=== PATIENT | female | born 1980 | race Caucasian/White ===

== ENCOUNTER 2020-05-19 13:52 | Outpatient (REF) | payer OTHER, SELFPAY | END 2020-05-19 13:53 | disposition home or self-care (01) | LOC: HO.LNP 13:52 | PROVIDERS: Visit Provider Otolaryngology | DX: J02.0 Streptococcal pharyngitis (principal) | CPT/HCPCS: 87071; 87880 ==

== ENCOUNTER 2020-06-10 17:34 | Outpatient (REF) | payer OTHER, SELFPAY | END 2020-06-10 17:35 | disposition home or self-care (01) | LOC: HO.LAB 17:34 | PROVIDERS: Visit Provider Internal Medicine | DX: Z20.822 Contact with and (suspected) exposure to COVID-19 (principal) | CPT/HCPCS: 36415; C9803; U0003 ==

== ENCOUNTER 2020-08-14 13:53 | Outpatient (REF) | payer OTHER, SELFPAY | END 2020-08-14 13:54 | disposition home or self-care (01) | LOC: HO.LAB 13:53 | PROVIDERS: Visit Provider Internal Medicine | DX: Z20.822 Contact with and (suspected) exposure to COVID-19 (principal) | CPT/HCPCS: 36415; C9803; U0003; U0005 ==

== ENCOUNTER 2020-08-28 21:43 | Emergency (ER) | payer OTHER, SELFPAY ==
[2020-08-28 22:12] VITALS: BP 120/72; PULSE 100; RESP 18; TEMP 37.7; O2SAT 97; BMI 22.3
--- NOTE | 2020-08-28 22:59 | ED_ITS ---
HPI - Fever General Chief Complaint: Fever Stated Complaint: Covid symptoms Time Seen by Provider: 08/28/20 22:58 Source: patient Mode of arrival: ambulatory Limitations: no limitations History of Present Illness HPI Narrative: 40-year-old female came in with 1 day history sore throat, subjective fever, upper back pain. Patient also been complaining of hives/rash which is itchy on her face patient declined any new detergent or using new soap or new makeup no change in her daily routine. No sick contacts, no recent travel. No sneezing, no coughing. Related Data Allergies Allergy/AdvReac Type Severity Reaction Status Date / Time No Known Allergies Allergy Verified 08/28/20 22:11 Review of Systems Review of Systems: All other systems are reviewed and are negative Constitutional: Reports as per HPI and Reports no additional constitutional complaints Eyes: Reports as per HPI and Reports no additional eye complaints Reports system reviewed and no additional complaints, except as documented Cardiovascular: Reports as per HPI and Reports no additional cardiovascular complaints Respiratory: Reports as per HPI and Reports no additional respiratory complaints Gastrointestinal: Reports as per HPI and Reports no additional gastrointestinal complaints Genitourinary: Reports no additional female genitourinary complaints Musculoskeletal: Reports no additional musculoskeletal complaints Skin/Breast: Reports system reviewed and no additional complaints, except as docu Psychiatric: Reports no additional psychiatric complaints Endocrine: Reports no additional endocrine complaints Hematologic/Lymphatic: Reports no additional hematologic/lymphatic complaints Allergic/Immunologic: Reports no additional allergic/immunologic complaints Reports system reviewed and no additional complaints, except as documented and Reports Abnormal speech present PMFSH Past Medical History Medical History COVID-19 Social History Social History Advance Directives: No Advance Directives Information Provided: No Physical Exam Vital Signs: Vital Signs: Last Vital Signs Temp 99.8 F 08/28/20 22:12 Pulse 100 08/28/20 22:12 Resp 18 08/28/20 22:12 BP 120/72 08/28/20 22:12 Pulse Ox 97 08/28/20 22:12 Body Mass Index 22.3 Vital signs have been reviewed as appeared to be correct. Blood pressure normal. Heart rate normal. Respiration rate normal. Temperature normal. Oxygen saturation normal. Appearance: Alert. Oriented X3. No acute distress. Head: Normal external exam. Normocephalic. Atraumatic. No Green signs noted. No raccoon eyes noted Eyes: PERRLA. EOMI. Conjunctiva and sclera normal. Eyelids normal. ENT: TM's Normal. Pharynx normal. Uvula midline. Moist mucous membranes. No trismus noted. No drooling noted. No muffled voice noted. Neck: Normal inspection. Neck supple. FROM. No adenopathy. Thyroid Normal. No meningeal signs. No neck mass noted. CVS: Normal heart rate and rhythm. Heart sound normal. No murmurs noted. Pulses normal throughout. Respiratory: No respiratory distress. Painless inspiration. Breath sounds normal. No wheezes/rales/rhonchi noted. Chest nontender. No accessory muscle usage noted or decreased air movement noted. Abdomen: Soft and nontender. Bowel sounds normal in all 4 quadrants. No distention noted. No organomegaly noted. No visible injury noted. Back: No CVA tenderness. Full range of motion noted. Skin: Skin warm and dry. Normal skin color. Normal skin turgor. No rashes/lesions/lacerations noted. Extremities: No lower extremity edema. Extremities exhibit normal range of motion. Extremities nontender. Neuro: Oriented X 3. No motor deficit. No sensory deficit. Reflexes normal. Course Course Course Narrative: Assessment and plan. 40-year-old female came in with sore throat rapid strep is negative for strep pharyngitis culture still pending. COVID testing is negative. Patient is also complaining of upper back pain UA is not indicated for pyelonephritis. Patient has also hives on the face patient declined reason for that. Will recommend Benadryl. MDM - Fever Lab Data Attestation: I reviewed the patient's lab results. Labs: Lab Results 08/28/20 08/29/20 08/29/20 Range/Units 23:59 00:05 00:05 Urine Color YELLOW Urine Appearance HAZY Urine pH 6.0 (5.0-8.0) Ur Specific [place] >= 1.030 H (1.005-1.025) Urine Protein TRACE (NEG-TRACE) MG/DL Urine Glucose (UA) NEG (NEG) MG/DL Urine Ketones NEG (NEG) MG/DL Urine Blood 3+ H (NEG) Urine Nitrite NEG (NEG) Ur Leukocyte Esterase NEG (NEG) Urine RBC 50-75 H (0) /HPF Urine WBC 1-4 (0-4) /HPF Ur Squamous Epith Cells 2+ /LPF Urine Bacteria NONE /LPF Urine Mucus 3+ /LPF Urine Test NEGATIVE (NEGATIVE) COVID-19 (LUCRECIA) Negative (Negative) COVID-19 Clin Com See Note Discharge Plan Discharge Clinical Impression: Pharyngitis Patient Disposition: Home, Self-Care Instructions: Pharyngitis (ED) Additional Instructions: Follow-up with PCP
[2020-08-29] VITALS: BP 112/70; PULSE 72; RESP 18; TEMP 37.7; O2SAT 98
[2020-08-29 00:12] LABS: Appearance Urine HAZY; Color Urine YELLOW; Glucose Urine UA NEG (NEG); Leukocyte Esterase Urine NEG (NEG); Nitrite Urine NEG (NEG); Specific Gravity - Urine >= 1.030 (1.005-1.025); Urine Blood 3+ (NEG); Urine Ketones NEG (NEG); Urine Protein TRACE MG/DL (NEG-TRACE)
[2020-08-29 00:13] LABS: UPreg QC Valid YES; Urine Pregnancy NEGATIVE (NEGATIVE)
[2020-08-29 00:19] LABS: COVID-19 Test Negative (Negative); IDNOW Serial# 9DD0AD1C
[2020-08-29 00:20] LABS: Mucus Urine 3+ /LPF; RBC Urine 50-75 /HPF (0); Squamous Epithelial Cell Urine 2+ /LPF
[2020-08-29] MEDS: diphenhydrAMINE HCL 25 MG TABLET 50 MG PO (00:43)
== END 2020-08-29 00:49 | disposition home or self-care (01) ==
PROVIDERS: Emergency Provider Emergency Medicine
DX: J02.9 Acute pharyngitis, unspecified (principal); Z20.822 Contact with and (suspected) exposure to COVID-19; R50.9 Fever, unspecified
CPT/HCPCS: 36415; 81001; 81025; 87071; 87635; 87880; 99283; 99284; Q0163

== ENCOUNTER 2020-08-31 06:55 | Emergency (ER) | payer OTHER, SELFPAY ==
[2020-08-31 07:23] VITALS: BP 118/82; PULSE 100; RESP 18; TEMP 36.3; O2SAT 95; BMI 21.6
[2020-08-31 08:00] VITALS: BP 116/87; PULSE 63; RESP 18; TEMP 36.8
--- NOTE | 2020-08-31 08:25 | ED.ABDPAIN ---
HPI - Abdominal Pain General Chief Complaint: Abdominal Pain Stated Complaint: Abd pain/?UTI Time Seen by Provider: 08/31/20 08:25 Source: patient Mode of arrival: ambulatory Limitations: language barrier History of Present Illness HPI narrative: NVD now with bloody diarhea, patient had fever yesterday. Patient was on antibiotics for a week for sore throat, amoxicillin. MD elicited complaint: abdominal pain Onset (ago): day(s) Pain Consistency: constant Severity: moderate Quality: cramping Radiation: LLQ and RLQ Migration to: no migration Relieving factors: nothing Context: other (recent antibiotics) Associated symptoms: nausea, vomiting, diarrhea and fever (tactile) Related Data Previous Rx's Medication Instructions Recorded ondansetron HCl [Zofran] 4 mg PO Q8H PRN #10 tab 08/31/20 Allergies Allergy/AdvReac Type Severity Reaction Status Date / Time No Known Allergies Allergy Verified 08/28/20 22:11 Review of Systems Constitutional: Reports no additional constitutional complaints Eyes: Reports no additional eye complaints Denies dizziness Cardiovascular: Reports no additional cardiovascular complaints Respiratory: Reports as per HPI Gastrointestinal: Reports no additional gastrointestinal complaints Genitourinary: Reports no additional female genitourinary complaints Musculoskeletal: Reports no additional musculoskeletal complaints Skin/Breast: Denies rash Reports system reviewed and no additional complaints, except as documented, Denies dizziness and Denies Sensory deficit (Neuro) Psychiatric: Denies anxiety Physical Exam Vital Signs: Vital Signs: Last Vital Signs Temp 98.3 F 08/31/20 08:00 Pulse 63 08/31/20 08:00 Resp 18 08/31/20 08:00 BP 116/87 08/31/20 08:00 Pulse Ox 95 08/31/20 07:23 Body Mass Index 21.6 Const: General: healthy appearing Nutritional Appearance: average body habitus Orientation/consciousness: oriented to person and patient oriented x3 Limitations: no limitations HENMT: Other: pharynx with erythema and exudates Head: Yes normal to inspection Ears: external ears normal General nose exam: Normal external nose present Throat: Yes posterior oropharynx normal Eyes: General: appearance normal, both eyes and all related structures Neck: Other: supple Neck: Yes normal visual inspection Chest: Chest palpation & inspection: normal inspection of the chest Resp: Auscultation: clear to auscultation bilaterally Cardio: Jugular venous distension: no JVD Rate: regular rate Rhythm: regular rhythm Heart sounds: S1 normal heart sound present and S2 normal heart sound present GI: Inspection: Yes normal to inspection Palpation (GI): Soft to palpation, nontender and No hepatosplenomegaly present Auscultation: normal bowel sounds : Other: rectal with bleeding hemorrhoid General: Yes no CVA tenderness Back/Spine/Pelvis: Back: no CVA tenderness Skin: General skin exam: no rashes or lesions noted Neuro: General: oriented to person and patient oriented x3 Cranial nerves: Yes CN's II-XII intact bilaterally Motor exam (neuro): 5/5 motor strength present throughout Sensory Exam: No Sensory deficit (Neuro) Extrem: General: Yes normal to inspection Psych: Appearance: grossly normal Course Course Course Narrative: discussed with Dr. Alvarado. Likely CMV, will check RPR in addition to GC/chlamydia and give decadron Reevaluation(s) Reevaluation #1: I have reviewed the chart MDM - Abdominal Pain MDM Narrative Medical decision making narrative: Diarrhea likely secondary to amoxicillin, patient negative for Mclennan, possible CMV, GC. Will not start clinda as patient already has diarrhea. Will give decadron Lab Data Result diagrams: 08/31/20 09:11 08/31/20 09:11 Labs: Lab Results 08/31/20 08/31/20 08/31/20 Range/Units 09:08 09:11 09:11 WBC 11.6 H (4.8-10.8) X10*3/uL RBC 4.20 (4.20-5.50) X10*6/uL Hgb 13.8 (12.0-16.0) g/dl Hct 40.3 (37-47) % MCV 96.0 (80-98) fL MCH 32.9 (27.0-33.0) pg MCHC 34.2 (31.0-35.0) g/dl RDW 12.3 (11.0-16.0) % Plt Count 205 (160-400) X10*3/uL MPV 9.3 L (9.4-12.3) fL Immature Gran % (Auto) 0.3 (0.0-0.4) % Neut % (Auto) 72.0 (45-73) % Lymph % (Auto) 13.3 L (20-40) % Mclennan % (Auto) 13.9 H (2-11) % Eos % (Auto) 0.2 (0-4) % Baso % (Auto) 0.3 (0-2) % Lymph # (Auto) 1.5 (1.2-4.9) X10*3/uL Mclennan # (Auto) 1.6 H (0.1-1.2) X10*3/uL Eos # (Auto) 0.0 (0.0-0.4) X10*3/uL Baso # (Auto) 0.0 (0.0-0.2) X10*3/uL Abs Immat Gran (auto) 0.03 (0.00-0.03) X10*3/uL Absolute Neuts (auto) 8.4 H (2.0-8.3) X10*3/uL Absolute Nucleated RBC 0.000 (0.0-0.012) X10*3/uL Nucleated RBC % (auto) 0.0 (0.0-0.2) /100WBC Smear Tech's Comments VERIFIED Sodium 135 (135-145) mmol/L Potassium 3.4 (3.3-5.1) mmol/L Chloride 100 (96-108) mmol/L Carbon Dioxide 24 (22-29) mmol/L Anion Gap 14 (12-20) BUN 9 (9-16) mg/dL Creatinine 0.63 (0.5-1.4) mg/dL Estim Creat Clear Calc 107.9 Estimated GFR > 60 Random Glucose 106 (60-115) mg/dL Calcium 8.5 (8.4-10.2) mg/dL Total Bilirubin 0.5 (0.0-1.0) mg/dL Direct Bilirubin 0.3 (0.0-0.5) mg/dL AST 68 H (5-31) U/L ALT 107 H (0-31) U/L Alkaline Phosphatase 112 (39-117) U/L Total Protein 7.4 (6.5-8.0) g/dL Albumin 4.1 (3.5-5.0) g/dL Lipase 8 (8-78) U/L Stool Leukocytes, Qual (NEGATIVE) T.pallidum Ab (EIA) (Nonreactive) Chlam trachomat DNA PCR NOT DETECTED (Not Detect.) C. difficile Toxin A&B (Negative) C. difficile Antigen (Negative) C. difficile Interpret Monoscreen (Negative) N.gonorrhoeae DNA (PCR) NOT DETECTED (Not Detect.) 08/31/20 08/31/20 08/31/20 Range/Units 09:11 09:11 10:57 WBC (4.8-10.8) X10*3/uL RBC (4.20-5.50) X10*6/uL Hgb (12.0-16.0) g/dl Hct (37-47) % MCV (80-98) fL MCH (27.0-33.0) pg MCHC (31.0-35.0) g/dl RDW (11.0-16.0) % Plt Count (160-400) X10*3/uL MPV (9.4-12.3) fL Immature Gran % (Auto) (0.0-0.4) % Neut % (Auto) (45-73) % Lymph % (Auto) (20-40) % Mclennan % (Auto) (2-11) % Eos % (Auto) (0-4) % Baso % (Auto) (0-2) % Lymph # (Auto) (1.2-4.9) X10*3/uL Mclennan # (Auto) (0.1-1.2) X10*3/uL Eos # (Auto) (0.0-0.4) X10*3/uL Baso # (Auto) (0.0-0.2) X10*3/uL Abs Immat Gran (auto) (0.00-0.03) X10*3/uL Absolute Neuts (auto) (2.0-8.3) X10*3/uL Absolute Nucleated RBC (0.0-0.012) X10*3/uL Nucleated RBC % (auto) (0.0-0.2) /100WBC Smear Tech's Comments Sodium (135-145) mmol/L Potassium (3.3-5.1) mmol/L Chloride (96-108) mmol/L Carbon Dioxide (22-29) mmol/L Anion Gap (12-20) BUN (9-16) mg/dL Creatinine (0.5-1.4) mg/dL Estim Creat Clear Calc Estimated GFR Random Glucose (60-115) mg/dL Calcium (8.4-10.2) mg/dL Total Bilirubin (0.0-1.0) mg/dL Direct Bilirubin (0.0-0.5) mg/dL AST (5-31) U/L ALT (0-31) U/L Alkaline Phosphatase (39-117) U/L Total Protein (6.5-8.0) g/dL Albumin (3.5-5.0) g/dL Lipase (8-78) U/L Stool Leukocytes, Qual MANY: >10/OIF (NEGATIVE) T.pallidum Ab (EIA) Nonreactive (Nonreactive) Chlam trachomat DNA PCR (Not Detect.) C. difficile Toxin A&B (Negative) C. difficile Antigen (Negative) C. difficile Interpret Monoscreen Negative (Negative) N.gonorrhoeae DNA (PCR) (Not Detect.) 08/31/20 Range/Units 10:57 WBC (4.8-10.8) X10*3/uL RBC (4.20-5.50) X10*6/uL Hgb (12.0-16.0) g/dl Hct (37-47) % MCV (80-98) fL MCH (27.0-33.0) pg MCHC (31.0-35.0) g/dl RDW (11.0-16.0) % Plt Count (160-400) X10*3/uL MPV (9.4-12.3) fL Immature Gran % (Auto) (0.0-0.4) % Neut % (Auto) (45-73) % Lymph % (Auto) (20-40) % Mclenn[place] % (Auto) (2-11) % Eos % (Auto) (0-4) % Baso % (Auto) (0-2) % Lymph # (Auto) (1.2-4.9) X10*3/uL Mclenn[place] # (Auto) (0.1-1.2) X10*3/uL Eos # (Auto) (0.0-0.4) X10*3/uL Baso # (Auto) (0.0-0.2) X10*3/uL Abs Immat Gran (auto) (0.00-0.03) X10*3/uL Absolute Neuts (auto) (2.0-8.3) X10*3/uL Absolute Nucleated RBC (0.0-0.012) X10*3/uL Nucleated RBC % (auto) (0.0-0.2) /100WBC Smear Tech's Comments Sodium (135-145) mmol/L Potassium (3.3-5.1) mmol/L Chloride (96-108) mmol/L Carbon Dioxide (22-29) mmol/L Anion Gap (12-20) BUN (9-16) mg/dL Creatinine (0.5-1.4) mg/dL Estim Creat Clear Calc Estimated GFR Random Glucose (60-115) mg/dL Calcium (8.4-10.2) mg/dL Total Bilirubin (0.0-1.0) mg/dL Direct Bilirubin (0.0-0.5) mg/dL AST (5-31) U/L ALT (0-31) U/L Alkaline Phosphatase (39-117) U/L Total Protein (6.5-8.0) g/dL Albumin (3.5-5.0) g/dL Lipase (8-78) U/L Stool Leukocytes, Qual (NEGATIVE) T.pallidum Ab (EIA) (Nonreactive) Chlam trachomat DNA PCR (Not Detect.) C. difficile Toxin A&B Negative (Negative) C. difficile Antigen Negative (Negative) C. difficile Interpret SEE NOTE Monoscreen (Negative) N.gonorrhoeae DNA (PCR) (Not Detect.) Discharge Plan Discharge Clinical Impression: Diarrhea, Exudative pharyngitis Patient Disposition: Home, Self-Care Instructions: Pharyngitis (ED), Acute Diarrhea (ED) Prescriptions: New ondansetron HCl [Zofran] 4 mg tablet 4 mg PO Q8H PRN (Reason: nausea and vomiting) Qty: 10 RF: 0 Referrals: [facility] [Primary Care Provider] - 2 days Interventions: ED Discharge Assessment Last Done: 08/31/20 11:21 Discharge Date/Time: 08/31/20 11:22 [facility] Past Medical History Medical History COVID-19 Depression Surgical History H/O tubal ligation Social History Social History Advance Directives: No
--- NOTE | 2020-08-31 08:41 | PC.NURSE ---
statistical assistant called
--- NOTE | 2020-08-31 08:57 | PC.NURSE ---
geoscience professor for rectal exam by dr pedroza
[2020-08-31 09:24] LABS: Basophils Percent Auto 0.3 % (0-2); Eosinophils Percent Auto 0.2 % (0-4); Hematocrit 40.3 % (37-47); Hemoglobin 13.8 g/dl (12.0-16.0); Imm Gran Abs Auto 0.03 X10*3/uL (0.00-0.03); Imm Gran Pct Auto 0.3 % (0.0-0.4); Lymphocytes Absolute Auto 1.5 X10*3/uL (1.2-4.9); Lymphocytes Percent Auto 13.3 % (20-40); MANUAL DIFF FLAG SCAN; Mean Corpuscular HGB Conc 34.2 g/dl (31.0-35.0); Mean Corpuscular Hemoglobin 32.9 pg (27.0-33.0); Mean Platelet Volume 9.3 fL (9.4-12.3); Monocytes Absolute Auto 1.6 X10*3/uL (0.1-1.2); Monocytes Percent Auto 13.9 % (2-11); Neutrophils Absolute Auto 8.4 X10*3/uL (2.0-8.3); Platelet Count 205 X10*3/uL (160-400); Red Cell Distribution Width 12.3 % (11.0-16.0); SCAN SMEAR FLAG 1; White Blood Count 11.6 X10*3/uL (4.8-10.8)
[2020-08-31 09:47] LABS: Alanine Aminotransferase 107 U/L (0-31); Albumin Level 4.1 g/dL (3.5-5.0); Alkaline Phosphatase 112 U/L (39-117); Anion Gap 14 (12-20); Aspartate Amino Transferase 68 U/L (5-31); Bilirubin Direct 0.3 mg/dL (0.0-0.5); Bilirubin Total 0.5 mg/dL (0.0-1.0); Blood Urea Nitrogen 9 mg/dL (9-16); Calcium 8.5 mg/dL (8.4-10.2); Carbon Dioxide 24 mmol/L (22-29); Chloride 100 mmol/L (96-108); Creatinine Clr Calc Pharmacy 107.9; Estimated Glomerular Filt Rate > 60; Glucose Random 106 mg/dL (60-115); Lipase 8 U/L (8-78); Potassium 3.4 mmol/L (3.3-5.1); SLIDE REVIEW VERIFIED; Sodium 135 mmol/L (135-145); Total Protein 7.4 g/dL (6.5-8.0)
[2020-08-31 09:51] LABS: Monotest Negative (Negative)
[2020-08-31 11:04] LABS: CT PCR NOT DETECTED (Not Detect.)
[2020-08-31 11:05] LABS: NG PCR NOT DETECTED (Not Detect.)
--- NOTE | 2020-08-31 11:20 | PC.NURSE ---
LAB CAN ADD ON SYPHILLIS TEST, GC AND STOOL PENDING. PT DC TO HOME WILL CALL WITH RESULTS, ALL OTHER FINDING NORMAL AT THIS TIME
[2020-08-31 11:44] LABS: Syphilis Screen Nonreactive (Nonreactive)
[2020-08-31 12:06] LABS: Leukocytes Stool Qualitative MANY: >10/OIF (NEGATIVE)
[2020-08-31 13:25] LABS: CDIFF Ag Negative (Negative); CDiff Toxin Negative (Negative)
[2020-08-31 13:26] LABS: CDIFF Internal ctrl Dots and bkg OK (V)
== END 2020-08-31 11:22 | disposition home or self-care (01) ==
PROVIDERS: Emergency Provider Emergency Medicine
DX: R19.7 Diarrhea, unspecified (principal); J02.9 Acute pharyngitis, unspecified; R10.9 Unspecified abdominal pain; Z86.16 Personal history of COVID-19
CPT/HCPCS: 36415; 80048; 80076; 83690; 85025; 86308; 86780; 87045; 87046; 87324; 87449; 87491; 87591; 89055; 96372; 99284; J1100

== ENCOUNTER 2020-09-24 15:21 | Outpatient (REF) | payer OTHER, SELFPAY | END 2020-09-24 15:22 | disposition home or self-care (01) | LOC: HO.LAB 15:21 | PROVIDERS: Visit Provider Internal Medicine | DX: Z20.822 Contact with and (suspected) exposure to COVID-19 (principal) | CPT/HCPCS: C9803; U0003; U0005 ==

== ENCOUNTER → 2021-01-05 11:08 | Outpatient (BNVA) | payer OTHER, SELFPAY | PROVIDERS: Visit Provider Internal Medicine | DX: J02.0 Streptococcal pharyngitis (principal); Z98.51 Tubal ligation status | CPT/HCPCS: 99202 ==

== ENCOUNTER 2021-06-21 14:26 | Outpatient (REF) | payer OTHER, SELFPAY ==
--- NOTE | ~2021-06-21 | XR_ITS ---
EXAMINATION: XR ABDOMEN KUB CLINICAL INDICATION: Microscopic hematuria. COMPARISON: Abdominal ultrasound of 04/03/2019. CT abdomen and pelvis of 11/17/2014 TECHNIQUE: AP view of the abdomen and pelvis. FINDINGS: The bowel gas pattern is normal with no evidence of ileus or obstruction. No unusual soft tissue calcifications are noted. The bones are unremarkable. The visualized lung bases are clear. XR/XR KUB IMPRESSION: No plain radiographic evidence of radiopaque urinary tract calculi.
== END 2021-06-21 14:27 | disposition home or self-care (01) ==
LOC: HO.XRAY 14:26
PROVIDERS: PCP Nurse Practitioner Primary Care; Visit Provider Nurse Practitioner Primary Care
DX: R31.29 Other microscopic hematuria (principal)
CPT/HCPCS: 74018

== ENCOUNTER 2021-07-01 12:00 | Outpatient (REF) | payer OTHER, SELFPAY ==
--- NOTE | ~2021-07-01 | US_ITS ---
EXAMINATION: US RETROPERITONEAL LIMITED (RENAL ONLY) CLINICAL INFORMATION: Microscopic hematuria. COMPARISON: XR KUB 06/21/2021. Ultrasound abdomen complete 04/03/2019. CT abdomen and pelvis with contrast 11/17/2014. TECHNIQUE: Real-time imaging of the kidneys. FINDINGS: RIGHT KIDNEY: 9.8 x 5.5 x 6.5 cm (SAG x AP x TRV). The kidney is normal in size, contour, and echogenicity. Renal cortical thickness is normal. No calculi or focal parenchymal lesions. No hydronephrosis. LEFT KIDNEY: 11.3 x 5.6 x 5.5 cm (SAG x AP x TRV). The kidney is normal in size, contour, and echogenicity. Renal cortical thickness is normal. No calculi or focal parenchymal lesions. No hydronephrosis. US/US renal BI IMPRESSION: Unremarkable sonographic imaging of the kidneys. Specifically, no renal calculi or hydronephrosis bilaterally.
== END 2021-07-01 12:01 | disposition home or self-care (01) ==
LOC: HO.HMGCX 12:00
PROVIDERS: PCP Nurse Practitioner Primary Care; Visit Provider Nurse Practitioner Primary Care
DX: R31.29 Other microscopic hematuria (principal); M54.9 Dorsalgia, unspecified
CPT/HCPCS: 76775

== ENCOUNTER 2021-11-18 19:49 | Emergency (ER) | payer OTHER, SELFPAY ==
[2021-11-18 19:55] VITALS: BP 112/91; PULSE 115; RESP 17; TEMP 37.3; O2SAT 97; BMI 26.6
[2021-11-18] MEDS: Ibuprofen 600 MG TABLET PO (20:03)
[2021-11-18 20:28] LABS: COVID-19 Test Negative (Negative); IDNOW Serial# 16C4AD1C; Influenza A Negative (Negative); Influenza B2 Negative (Negative)
[2021-11-18 20:30] LABS: Strep A Nucleic Acid Negative (Negative)
[2021-11-18] MEDS: methylPREDNISolone Sod Succ 125 MG/2 ML VIAL IVPUSH (21:02)
[2021-11-18] MEDS: 0.9 % Sodium Chloride 1,000 ML 999 ML IV (21:02)
--- NOTE | 2021-11-18 21:04 | ED.GENADULT ---
HPI - General Adult General Chief complaint: General Medical Stated complaint: strep throat, dizzy Time Seen by Provider: 11/18/21 20:36 Source: patient and per diem interpreter Mode of arrival: ambulatory Limitations: no limitations History of Present Illness HPI narrative: 41-year-old female came in with sore throat and feeling dizzy. Right-sided sore throat for many weeks, patient was seen in the emergency department for similar symptoms in the past was treated with amoxicillin patient had negative strep throat with negative culture of the throat for group a beta-hemolytic streptococci, patient developed diarrhea from amoxicillin. Patient is sexually active with 1 partner patient is concerned of having STD exposure, patient has no symptoms. Related Data Previous Rx's Medication Instructions Recorded ondansetron HCl 4 mg tablet 4 mg PO Q8H PRN nausea and 08/31/20 (Zofran) vomiting #10 tabs amoxicillin 500 mg capsule 500 mg PO TID 10 days #30 caps 01/05/21 penicillin V potassium 250 mg 250 mg PO BID 30 days #60 tabs 01/05/21 tablet Allergies Allergy/AdvReac Type Severity Reaction Status Date / Time No Known Allergies Allergy Verified 08/28/20 22:11 Review of Systems Review of Systems: All other systems are reviewed and are negative Constitutional: Reports as per HPI and Reports no additional constitutional complaints Eyes: Reports as per HPI and Reports no additional eye complaints Reports system reviewed and no additional complaints, except as documented Cardiovascular: Reports as per HPI and Reports no additional cardiovascular complaints Respiratory: Reports as per HPI and Reports no additional respiratory complaints Gastrointestinal: Reports as per HPI and Reports no additional gastrointestinal complaints Genitourinary: Reports no additional female genitourinary complaints Musculoskeletal: Reports no additional musculoskeletal complaints Skin/Breast: Reports system reviewed and no additional complaints, except as docu Psychiatric: Reports no additional psychiatric complaints Endocrine: Reports no additional endocrine complaints Hematologic/Lymphatic: Reports no additional hematologic/lymphatic complaints Allergic/Immunologic: Reports no additional allergic/immunologic complaints Reports system reviewed and no additional complaints, except as documented and Reports Abnormal speech present [facility] Past Medical History Medical History COVID-19 Depression Surgical History H/O tubal ligation Social History Social History Advance Directives: No Advance Directives Information Provided: No Physical Exam ED Vital Signs: Vital Signs - 24 hr 11/18/21 19:55 Temperature 99.2 F Pulse Rate 115 H Respiratory Rate 17 Blood Pressure 112/91 H Pulse Oximetry 97 Oxygen Delivery Method Room Air BMI result Body Mass Index 26.6 Vital signs have been reviewed as appeared to be correct. Blood pressure normal. Heart rate elevated. Respiration rate normal. Temperature normal. Oxygen saturation normal. Appearance: Alert. Oriented X3. No acute distress. Head: Normal external exam. Normocephalic. Atraumatic. No Green signs noted. No raccoon eyes noted Eyes: PERRLA. EOMI. Conjunctiva and sclera normal. Eyelids normal. ENT: TM's Normal. Right pharyngeal erythema with white exudate, no tonsillar enlargement. Uvula midline. Moist mucous membranes. No trismus noted. No drooling noted. No muffled voice noted. Neck: Normal inspection. Neck supple. FROM. No adenopathy. Thyroid Normal. No meningeal signs. No neck mass noted. CVS: Normal heart rate and rhythm. Heart sound normal. No murmurs noted. Pulses normal throughout. Respiratory: No respiratory distress. Painless inspiration. Breath sounds normal. No wheezes/rales/rhonchi noted. Chest nontender. No accessory muscle usage noted or decreased air movement noted. Abdomen: Soft and nontender. Bowel sounds normal in all 4 quadrants. No distention noted. No organomegaly noted. No visible injury noted. Back: No CVA tenderness. Full range of motion noted. Skin: Skin warm and dry. Normal skin color. Normal skin turgor. No rashes/lesions/lacerations noted. Extremities: No lower extremity edema. Extremities exhibit normal range of motion. Extremities nontender. Neuro: Oriented X 3. Cranial nerve exam: II-XII are grossly intact No motor deficit. No sensory deficit. Reflexes normal. Course Course Course Narrative: Assessment and plan. 41 years old female came in with sore throat, patient is negative for strep pharyngitis, also negative for mononucleosis pharyngitis, negative COVID/flu. Patient is prone to antibiotic induced diarrhea However patient received IV hydration with IV Solu-Medrol patient felt better. Will discharge the patient to follow-up with ENT doctor for further evaluation. Medical Decision Making Lab Data Lab results reviewed: Yes I reviewed the patient's lab results. Labs: Lab Results 11/18/21 11/18/21 11/18/21 Range/Units 19:59 19:59 20:13 COVID-19 (LUCRECIA) Negative (Negative) COVID-19 Clin Com See Note Monoscreen (Negative) Influenza Type A (SKYLER) Negative (Negative) Influenza Type B (SKYLER) Negative (Negative) Influenza A & B Note See Note S. pyogenes GrpA SKYLER Negative (Negative) 11/18/21 Range/Units 21:26 COVID-19 (LUCRECIA) (Negative) COVID-19 Clin Com Monoscreen Negative (Negative) Influenza Type A (SKYLER) (Negative) Influenza Type B (SKYLER) (Negative) Influenza A & B Note S. pyogenes GrpA SKYLER (Negative) Discharge Plan Discharge Clinical Impression: Pharyngitis Patient Disposition: Home, Self-Care Instructions: Pharyngitis (ED) Prescriptions: No Action ondansetron HCl [Zofran] 4 mg tablet 4 mg PO Q8H PRN (Reason: nausea and vomiting) Qty: 10 0RF amoxicillin 500 mg capsule 500 mg PO TID 10 Days Qty: 30 0RF Rx Instructions: start Penicillin day after finish penicillin V potassium 250 mg tablet 250 mg PO BID 30 Days Qty: 60 5RF Rx Instructions: start day after finish Amoxicillin Referrals: Luke Marina [Physician] - Allyn Salguero [employer] [Primary Care Provider] -
[2021-11-18 21:55] LABS: Monotest Negative (Negative)
[2021-11-19 09:36] LABS: CT PCR NOT DETECTED (Not Detect.); NG PCR NOT DETECTED (Not Detect.)
== END 2021-11-18 23:12 | disposition home or self-care (01) ==
PROVIDERS: Emergency Provider Emergency Medicine; PCP Nurse Practitioner Primary Care
DX: J02.9 Acute pharyngitis, unspecified (principal); Z20.2 Contact with and (suspected) exposure to infections with a predominantly sexual mode of transmission; Z20.822 Contact with and (suspected) exposure to COVID-19
CPT/HCPCS: 36415; 86308; 87491; 87502; 87591; 87635; 87651; 96361; 96374; 99283; 99284; J2930

== ENCOUNTER 2022-08-05 10:22 | Outpatient (REF) | payer OTHER, SELFPAY ==
--- NOTE | ~2022-08-05 | US_ITS ---
EXAMINATION: US ABDOMEN LIMITED CLINICAL INFORMATION: Right upper quadrant pain. COMPARISON: Renal ultrasound 07/01/2021. X-ray KUB 06/21/2021. Ultrasound abdomen complete 04/03/2019. CT abdomen and pelvis 11/17/2014. TECHNIQUE: Real-time imaging of the right upper quadrant abdominal viscera. FINDINGS: PANCREAS: Limited. The visualized pancreatic head and body are normal in appearance. The remainder of the pancreas is obscured from visualization by the overlying bowel gas. LIVER: The liver is normal in size. The liver contour is normal. There is slightly increased liver parenchymal echogenicity. No focal hepatic lesion. There is no intrahepatic biliary duct dilatation seen. GALLBLADDER: Normal. The gallbladder is physiologically distended without evidence of stones, sludge, polyps, wall thickening or pericholecystic fluid. COMMON BILE DUCT: Normal in caliber measuring 0.2 cm in diameter. RIGHT KIDNEY: Normal. No hydronephrosis. No renal calculi or focal parenchymal lesions. The kidney measures 10.3 cm in maximum dimension. FREE FLUID: None. US/US abdomen limited IMPRESSION: 1. There is slight generalized increase in hepatic echotexture, consistent with fatty infiltration or hepatocellular disease. Please correlate clinically. No focal hepatic mass or intrahepatic biliary dilatation is seen. 2. Otherwise, unremarkable examination, with imaging of the pancreas technically limited.
== END 2022-08-05 10:23 | disposition home or self-care (01) ==
LOC: HO.US 10:22
PROVIDERS: PCP Nurse Practitioner Primary Care; Visit Provider Nurse Practitioner Primary Care
DX: R10.11 Right upper quadrant pain (principal)
CPT/HCPCS: 76705

== ENCOUNTER 2023-09-29 12:36 | Outpatient (REF) | payer OTHER, SELFPAY ==
--- NOTE | ~2023-09-29 | XR_ITS ---
EXAMINATION: XR MANDIBLE CLINICAL INFORMATION: Cheek pain COMPARISON: None available. TECHNIQUE: 4 views of the mandible were obtained. FINDINGS: No displaced fracture or dislocation. Dental hardware. Soft tissues are unremarkable. XR/XR mandible min 4V IMPRESSION: 1. No displaced fracture or dislocation. 2. Dental hardware.
== END 2023-09-29 12:37 | disposition home or self-care (01) ==
LOC: HO.XRAY 12:36
PROVIDERS: PCP Nurse Practitioner Primary Care; Visit Provider Student in an Organized Health Care Education/Training Program
DX: R22.0 Localized swelling, mass and lump, head (principal)
CPT/HCPCS: 70110

== ENCOUNTER 2023-10-10 13:07 | Outpatient (REF) | payer OTHER, SELFPAY ==
--- NOTE | ~2023-10-10 | US_ITS ---
EXAMINATION: US SOFT TISSUE HEAD/NECK CLINICAL INFORMATION: Growing soft tissue mass left mid mandibular area. COMPARISON: X-ray mandible 09/29/2023. TECHNIQUE: Linear transducer collins-scale and color Doppler examination of the left mandible. FINDINGS: Targeted ultrasound images were obtained by the library helper of the area of concern as indicated by the patient in the mid left mandible. There is a 0.8 x 0.6 x 0.6 cm hypoechoic, [id number] mass with well-circumscribed margins and internal vascularity. Incidental note of a adjacent lymph nodes measuring 1.1 x 0.4 x 0.5 cm, 1.1 x 0.7 x 0.7 cm, and largest 2.6 x 0.7 x 1.9 cm. These lymph nodes demonstrate echogenic marco antonio, reniform shape, and borderline cortical thickening. Radiologist was not in attendance. Images were later provided for interpretation. US/US soft tiss head and/or neck IMPRESSION: A 0.8 cm hypoechoic vascular mass in the area indicated by the patient in the left mid mandible. Incidental note of at least 3 adjacent lymph nodes with borderline cortical thickening, largest measures 2.6 x 0.7 x 1.9 cm. Correlation with clinical exam recommended to determine further assessment including possible additional imaging with MRI, treatment or biopsy.
== END 2023-10-10 13:08 | disposition home or self-care (01) ==
LOC: HO.US 13:07
PROVIDERS: PCP Nurse Practitioner Primary Care; Visit Provider Student in an Organized Health Care Education/Training Program
DX: R22.0 Localized swelling, mass and lump, head (principal)
CPT/HCPCS: 76536

== ENCOUNTER 2023-10-11 14:20 | Outpatient (REF) | payer OTHER, SELFPAY ==
[2023-10-11 16:12] LABS: MANUAL DIFF FLAG NO
[2023-10-11 16:20] LABS: Basophils Percent Auto 0.4 % (0-2); Eosinophils Absolute Auto 0.1 X10*3/uL (0.0-0.4); Eosinophils Percent Auto 1.1 % (0-4); Hematocrit 38.4 % (37.0-47.0); Hemoglobin 12.9 g/dl (12.0-16.0); Imm Gran Abs Auto 0.02 X10*3/uL (0.00-0.03); Imm Gran Pct Auto 0.3 % (0.0-0.4); Lymphocytes Absolute Auto 2.2 X10*3/uL (1.2-4.9); Lymphocytes Percent Auto 29.5 % (20-40); Mean Corpuscular HGB Conc 33.6 g/dl (31.0-35.0); Mean Corpuscular Hemoglobin 32.5 pg (27.0-33.0); Mean Corpuscular Volume 96.7 fL (80.0-98.0); Monocytes Absolute Auto 0.6 X10*3/uL (0.1-1.2); Monocytes Percent Auto 8.7 % (2-11); Neutrophils Absolute Auto 4.4 x10*3/uL (2.0-8.3); Platelet Count 311 X10*3/uL (160-400); Red Blood Count 3.97 X10*6/uL (4.20-5.50); Red Cell Distribution Width 12.1 % (11.0-16.0); White Blood Count 7.3 X10*3/uL (4.8-10.8)
[2023-10-11 16:36] LABS: Anion Gap 15 (12-20); Blood Urea Nitrogen 9 mg/dL (9-16); Calcium 9.5 mg/dL (8.4-10.2); Carbon Dioxide 23 mmol/L (22-29); Chloride 106 mmol/L (96-108); Cholesterol 198 mg/dL (<200); Estimated Glomerular Filt Rate > 60; Glucose Random 84 mg/dL (60-115); HDL Cholesterol 39 mg/dL (>40); LDL Cholesterol Calculated 142 mg/dL (<100); Potassium 4.1 mmol/L (3.3-5.1); Sodium 140 mmol/L (135-145); Triglycerides 86 mg/dL (<150)
[2023-10-11 17:00] LABS: Folate 10.1 ng/mL (> or = 4.0); Vitamin B12 378 pg/mL (200-900)
[2023-10-12 08:00] LABS: HIV AB/AG Nonreactive (Nonreactive); HIV Num 1 0.04 S/CO (0.00-0.99); ~HepC Num1 0.13 S/CO (0.00-0.79); ~Hepatitis C Antibody Nonreactive (Nonreactive)
[2023-10-14 07:24] LABS: TS Negative Control Passed; TS Panel A 0; TS Panel B 0; TS Positive Control Passed; TSpotTB Negative (Negative)
[2023-10-15 14:48] LABS: RPR Rapid Plasma Reagin NON-REACTIVE (NON-REACTIVE)
== END 2023-10-11 14:21 | disposition home or self-care (01) ==
LOC: HO.HHCL 14:20
PROVIDERS: Visit Provider Nurse Practitioner Primary Care
DX: R61 Generalized hyperhidrosis (principal); Z11.3 Encounter for screening for infections with a predominantly sexual mode of transmission; F32.A Depression, unspecified; Z13.220 Encounter for screening for lipoid disorders
CPT/HCPCS: 36415; 80048; 80061; 82607; 82746; 84443; 85025; 86481; 86592; 86803; 87389

== ENCOUNTER → 2023-10-25 14:30 | Outpatient (BNV) | payer OTHER, SELFPAY | PROVIDERS: PCP Student in an Organized Health Care Education/Training Program; Visit Provider Radiology Diagnostic Radiology | DX: Z12.31 Encounter for screening mammogram for malignant neoplasm of breast (principal) | CPT/HCPCS: 77063; 77067 ==

== ENCOUNTER 2023-10-25 14:39 | Outpatient (REF) | payer OTHER, SELFPAY ==
--- NOTE | ~2023-10-25 | MM_ITS ---
EXAMINATION: MM SCREENING DIGITAL BREAST TOMOSYNTHESIS, BILATERAL CLINICAL INFORMATION: Screening. Asymptomatic. COMPARISON: Mammography: This is a baseline mammogram. TECHNIQUE: Digital breast tomosynthesis is performed in both the craniocaudal and mediolateral oblique views along with computer-aided detection (CAD). Synthesized 2D images are generated from the tomosynthesis. FINDINGS: There are scattered areas of fibroglandular density (ACR BI-RADS breast composition Category b). There are no significant masses, abnormal calcifications, or other abnormalities. MM/MM tomosynthesis screening BI IMPRESSION: No mammographic evidence of malignancy. ASSESSMENT: BI-RADS BI-RADS 1 - Negative RECOMMENDATION: Routine annual mammography screening. 1 year F/U This examination should not preclude the clinical evaluation of a suspicious palpable abnormality. This patient's information was entered into a reminder system with a target due date for their next mammogram.
== END 2023-10-25 14:40 | disposition home or self-care (01) ==
LOC: HO.MAMMO 14:39
PROVIDERS: PCP Student in an Organized Health Care Education/Training Program; Visit Provider Nurse Practitioner Primary Care
DX: Z12.31 Encounter for screening mammogram for malignant neoplasm of breast (principal)
CPT/HCPCS: 77063; 77067

== ENCOUNTER 2023-10-26 16:44 | Outpatient (REF) | payer OTHER, SELFPAY ==
[2023-11-02 07:59] LABS: HPV mRNA E6/E7 rflx Not Detected (Not Detected)
== END 2023-10-26 16:45 | disposition home or self-care (01) ==
LOC: HO.LNP 16:44
PROVIDERS: Visit Provider Advanced Practice Midwife
DX: Z12.4 Encounter for screening for malignant neoplasm of cervix (principal)
CPT/HCPCS: 87624; 88142

== ENCOUNTER 2024-01-09 15:52 | Outpatient (REF) | payer OTHER, SELFPAY ==
--- NOTE | ~2024-01-09 | MR_ITS ---
EXAMINATION: MRI FACE/NECK WITHOUT AND WITH CONTRAST CLINICAL INFORMATION: 43-year-old with self-reported left-sided mass, mandible. COMPARISON: None available. TECHNIQUE: MRI of the soft tissue neck and extracranial head and neck structures was obtained using routine sequences without and with contrast. Intravenous contrast: Gadavist 6.5 mL. Technical note: Markers were placed at the region of interest, overlying the left cheek and left submandibular space. Note that the study was limited as postcontrast fat saturation was not performed. FINDINGS: At the site of the markers, there is normal-appearing subcutaneous adipose tissue with no evidence for mass lesion, fluid collection, edema or abnormal enhancement. The mandible demonstrates normal morphology. There is susceptibility artifact within the left body of the mandible. The lingual and buccal spaces appear grossly unremarkable. The visualized intracranial structures demonstrate no acute process. The visualized orbital structures appear grossly unremarkable within the limitations of the study. The visceral spaces appear smoothly contoured and the feather stitcher and parapharyngeal spaces are within normal limits. The parotid glands are normal in morphology and signal intensity. The submandibular glands are markedly atrophic or absent bilaterally. There are prominent level IIA lymph nodes at the IJ chains bilaterally, measuring 1.6 x 0.9 cm on the left and 1.1 x 0.8 cm on the right. The oral cavity structures are within normal limits with a normal appearance to the base of the tongue and floor of the mouth structures. No other lymphadenopathy identified. The suprahyoid epiglottis, hypopharynx and larynx appear grossly within normal limits. The thyroid gland is incompletely visualized. No obvious thyromegaly. Normal signal voids are seen within the visualized major neck and intracranial vessels. Discogenic degenerative changes and spondylosis are seen between C4-C5 and C6-C7 inclusive with broad-based posterior disc protrusions at these levels. MR/MR orbits face neck wo/w con IMPRESSION: 1. No evidence for mass lesion, fluid collection or edema at the site of the markers on the left. 2. Moderately prominent bilateral level IIA IJ chain lymph nodes, left more than right, which are nonspecific and may be reactive in nature. Consider follow-up soft tissue neck ultrasound in 6 months to reassess if warranted. 3. Multilevel cervical degenerative changes, as described above. 4. Limited visualization of the thyroid gland. Susceptibility artifact noted in the left body of the mandible. 5. Some limitations related to lack of postcontrast fat sat T1-weighted imaging. Electronically signed by: Will Contreras MD 02/01/2024 02:54 PM EDT RP
[2024-01-09] MEDS: gadobutroL 7.5 ML VIAL IVPUSH (11:56)
== END 2024-01-09 15:53 | disposition home or self-care (01) ==
LOC: HO.MRI 15:52
PROVIDERS: PCP Student in an Organized Health Care Education/Training Program; Visit Provider Student in an Organized Health Care Education/Training Program
DX: R22.0 Localized swelling, mass and lump, head (principal); M79.89 Other specified soft tissue disorders
CPT/HCPCS: 70543; A9585

== ENCOUNTER 2024-03-14 14:29 | Outpatient (REF) | payer OTHER, SELFPAY ==
[2024-03-14 16:25] LABS: MANUAL DIFF FLAG NO
[2024-03-14 16:30] LABS: Basophils Percent Auto 0.7 % (0-2); Eosinophils Absolute Auto 0.1 X10*3/uL (0.0-0.4); Hematocrit 38.5 % (37.0-47.0); Hemoglobin 12.7 g/dl (12.0-16.0); Imm Gran Abs Auto 0.01 X10*3/uL (0.00-0.03); Imm Gran Pct Auto 0.2 % (0.0-0.4); Lymphocytes Absolute Auto 1.9 X10*3/uL (1.2-4.9); Mean Corpuscular Hemoglobin 32.5 pg (27.0-33.0); Mean Corpuscular Volume 98.5 fL (80.0-98.0); Mean Platelet Volume 9.7 fL (9.4-12.3); Monocytes Absolute Auto 0.6 X10*3/uL (0.1-1.2); Monocytes Percent Auto 9.6 % (2-11); Neutrophils Absolute Auto 3.3 x10*3/uL (2.0-8.3); Neutrophils Percent Auto 56.5 % (45-73); Platelet Count 369 X10*3/uL (160-400); Red Blood Count 3.91 X10*6/uL (4.20-5.50); Red Cell Distribution Width 11.9 % (11.0-16.0); White Blood Count 5.8 X10*3/uL (4.8-10.8)
[2024-03-14 16:46] LABS: Rheumatoid Factor < 13.0 IU/mL (<15.0)
[2024-03-14 17:17] LABS: Erythrocyte Sedimentation Rate 16 MM/HR (0-20)
[2024-03-14 17:34] LABS: Creatinine Urine 156.39 mg/dL; Microalbum/Creatinine Ratio Ur 8.3 ug/mg cr (<30)
[2024-03-15 20:59] LABS: Antibody to SS-A Antigen <1.0 NEG AI (<1.0 NEG); Antibody to SS-B Antigen <1.0 NEG AI (<1.0 NEG)
[2024-03-17 13:33] LABS: Anti Nuclear Antibody Screen NEGATIVE (NEGATIVE)
== END 2024-03-14 14:30 | disposition home or self-care (01) ==
LOC: HO.HHCL 14:29
PROVIDERS: Visit Provider Nurse Practitioner Primary Care
DX: K11.0 Atrophy of salivary gland (principal)
CPT/HCPCS: 36415; 82043; 82570; 85025; 85652; 86038; 86235; 86431

== ENCOUNTER → 2024-03-19 11:08 | Outpatient (REF) | payer OTHER, SELFPAY ==
--- NOTE | 2024-03-19 | HM_ITS ---
Conclusion: 1. Patient was monitored for total period of 2 days 2. Baseline was normal sinus rhythm with average heart of 76 beats per minute 3. No significant arrhythmias or pauses noted 4. Patient marked the counter 3 times with symptoms reported as tachycardia correlating with sinus rhythm or sinus bradycardia MTDD
== END ==
LOC: HO.CARD 11:08
PROVIDERS: PCP Nurse Practitioner Primary Care; Visit Provider Nurse Practitioner Primary Care
DX: R00.2 Palpitations (principal)
CPT/HCPCS: 93225

== ENCOUNTER → 2024-03-19 11:58 | Outpatient (BNV) | payer OTHER, SELFPAY | PROVIDERS: PCP Nurse Practitioner Primary Care; Visit Provider Internal Medicine Cardiovascular Disease | DX: R00.1 Bradycardia, unspecified (principal) | CPT/HCPCS: 93227 ==

== ENCOUNTER 2024-06-28 10:03 | Outpatient (REF) | payer OTHER, SELFPAY ==
--- OUTSIDE RECORDS SUMMARY | 2024-06-28 10:45 | XMS_ITS | Clinical Summary ---
Author Organization [employer] Address [address] [facility] [address] [place] [address] Care Team Providers Care Rpg Programmer Analyst Name Role Phone Aashish Cantor Primary Care Provider [phone] Allergies No known active allergies Medications * This document contains information received from the source organization and may not represent a complete record from that organization. ibuprofen 800 MG tabletIndicati ons:Low back pain at multiple sites TAKE 1 TABLET BY MOUTH UP TO THREE TIMES DAILY WITH FOOD NEEDED FOR PAIN 60 tablet 1 01/11/20 23 Active estradiol (Estrace) 0.1 MG/GM vaginal cream Insert 1 g into the vagina Once per day. 1g vaginally x 14d, then twice weekly thereafter 45 g 2 12/07/19 24 Active ketoconazole (NIZOral) 2 % shampooIndicat ions:Seborrhei c dermatitis Use as shampoo 3 times per week 120 mL 5 01/18/20 24 Active D3 Super Strength 50 MCG (2000 UT) capsuleIndicat ions:Healthcar e maintenance,Vi tamin D deficiency TAKE 1 CAPSULE BY MOUTH EVERY DAY IN THE MORNING 90 capsule 1 02/13/20 24 Active cyanocobalamin (Vitamin B-12) 1000 MCG tabletIndicati ons:Healthcare maintenance TAKE 2 TABLETS BY MOUTH EVERY DAY IN THE MORNING 180 tablet 1 02/13/20 24 Active traMADol (Ultram) 50 MG tabletIndicati ons:Low back pain at multiple sites TAKE 1 TABLET BY MOUTH EVERY 8 HOURS NEEDED FOR SEVERE PAIN 42 tablet 1 04/24/20 24 Active ketoconazole (NIZOral) 2 % creamIndicatio ns:Seborrheic dermatitis APPLY TOPICALLY 1-2 TIMES DAILY TO THE FACE 30 g 2 05/08/20 24 Active omeprazole (PriLOSEC) [address] capsuleIndicat ions:Gastroeso phageal reflux disease, unspecified whether esophagitis present TAKE 1 CAPSULE BY MOUTH EVERY MORNING 30 TO 60 MINUTES BEFORE A MEAL 90 capsule 1 05/20/20 24 Active ramelteon (Rozerem) 8 MG tabletIndicati ons:Insomnia, unspecified type Take 1 tablet (8 mg) by mouth if needed at bedtime for sleep. 30 tablet 1 06/11/19 25 025 Active sertraline (Zoloft) 25 MG tabletIndicati ons:Persistent depressive disorder,Postt raumatic stress disorder Take 1 tablet (25 mg) by mouth in the morning. 30 tablet 1 06/11/19 25 025 Active hydrOXYzine HCl (Atarax) 10 MG tabletIndicati ons:Persistent depressive disorder Take 1 tablet (10 mg) by mouth if needed in the morning and at bedtime for anxiety. 60 tablet 1 06/11/19 25 025 Active venlafaxine XR (Effexor XR) 37.5 MG 24 hr capsule TAKE 1 CAPSULE BY MOUTH EVERY MORNING WITH FOOD 30 capsule 5 04/05/20 23 025 Discontinued(In effective) ramelteon (Rozerem) 8 MG tabletIndicati ons:Insomnia, unspecified type TAKE 1 TABLET BY MOUTH AT BEDTIME NEEDED for SLEEP 30 tablet 2 05/08/20 24 025 Discontinued(Re order (will not trigger notification to Pharmacy)) Active Problems Problem Noted Date Diagnosed Date LLQ pain 06/28/2024 Assessment & Plan (06/28/2024 9:58 AM EST): Pt physical exam wnl, abdominal exam unremarkeable, no masses palpated, no guarding, no rebound tenderness, no color changes, +BS, VSS Will obtain CBC to r/o GI bleed and infectious etiology and abdominal U/S today Will f/u with results Group C streptococcal infection 01/03/2024 Persistent depressive disorder 10/05/2023 Assessment & Plan (05/23/2024 11:46 AM EST): During IBH Consult Rupal presenting with depressed mood, Tearful, crying spells , hopelessness, irritable mood, loss of interests/pleasure , sense of isolation/loneliness , change in appetite or weight reduce appetite, changes in sleep difficulty falling asleep and difficulty staying asleep , psychomotor retardation, fatigue/loss of energy, worthlessness, inappropriate/excessive guilt , difficulty concentrating, indecisiveness; for a period of 18+ mo, for most or all symptoms in the context of illness or family illness and housing. Pt carries a diagnosis for PTSD per her medical chart. 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 Rupal reported having a difficult time processing her emotions. Explored mechanisms to use during this stressful time. Helped pt to reflect on previous times when she had to overcome stressful events and she did successfully. Rupal has strengths that will utilize and will prioritize her mental health. clinician engaged patient with active/reflective listening. Provided a space for patient to share her feelings and concerns. Pt is interested in starting medication management with [facility] provider. She was previously seen Zach Jimenez, PCP is currently managing meds. Pt reports she discontinued some of her medication due to experiencing strong side effects. PCP will facilitate letter to assist with her housing needs. Pt was given information for [facility] for sooner OP therapy appointments. will assist providing additional support as needed/requested. Assessment & Plan (10/13/2023 9:17 AM EDT): During IBH Consult Rupal presenting with depressed mood, loss of interests/pleasure , changes in sleep difficulty staying asleep , trouble concentrating, thoughts of worthlessness or guilt, fatigue/loss of energy, inappropriate guilt , hopelessness, worthlessness , difficulty concentrating and Intrusive trauma memories and thoughts, Nightmares/night terrors, Hypervigilance, Avoidance of trauma reminders/triggers, Fear and distrust in relationships, Isolation from normal social supports, Fear of social judgement, and Difficulty with crowds; for a period of 18+ mo, for all symptoms in the context of employment concern and hx of trauma. During today's session we discussed the effect of trauma in the body and importance of engaging in CBT as part of treatment. Currently on medication to treat sxs. Complicated interpersonal relationships at work identified as main trigger. PLAN: (check all that apply) New/Additional Services needed PCP management Off-site services for Behavioral Health Integration Plan External OP therapy referral Patient Self Plan Patient to utilize skills provided in intervention , Patient to reach out to [facility] team as needed, Comply with medication , Patient to engage in OP therapy , and Patient to reach out to [facility] as needed Mass of soft tissue of face 09/29/2023 Assessment & Plan (09/29/2023 6:32 PM EDT): pt w growing soft tissue mass localized over her left mid mandibular area that seems a cyst or fibroma? Does not have hard bone consistency -referred for mandibular XR and head/neck US--I called radiologist staff at [facility] and confirmed they can do US over area ---will call pt w results Chronic sore throat 07/14/2022 Chronic bilateral low back pain without sciatica 07/14/2022 Insomnia 07/14/2022 Posttraumatic stress disorder 03/13/2015 Assessment & Plan (10/13/2023 9:17 AM EDT): During IBH Consult Rupal presenting with depressed mood, loss of interests/pleasure , changes in sleep difficulty staying asleep , trouble concentrating, thoughts of worthlessness or guilt, fatigue/loss of energy, inappropriate guilt , hopelessness, worthlessness , difficulty concentrating and Intrusive trauma memories and thoughts, Nightmares/night terrors, Hypervigilance, Avoidance of trauma reminders/triggers, Fear and distrust in relationships, Isolation from normal social supports, Fear of social judgement, and Difficulty with crowds; for a period of 18+ mo, for all symptoms in the context of employment concern and hx of trauma. During today's session we discussed the effect of trauma in the body and importance of engaging in CBT as part of treatment. Currently on medication to treat sxs. Complicated interpersonal relationships at work identified as main trigger. PLAN: (check all that apply) New/Additional Services needed PCP management Off-site services for Behavioral Health Integration Plan External OP therapy referral Patient Self Plan Patient to utilize skills provided in intervention , Patient to reach out to [facility] team as needed, Comply with medication , Patient to engage in OP therapy , and Patient to reach out to [facility] as needed Pain in left leg 03/13/2015 Encounters * This document contains information received from the source organization and may not represent a complete record from that organization. Date Type Department Care Team Description 06/28/2024 9:00 AM EST Office Visit [facility] [place] [address] Natasha Lindsey CNP LLQ pain (Primary Dx) 06/27/[address] [address] Aashish Cantor ANP Nurse Triage 06/27/2024 Patient Outreach [facility] [address] [place] [phone] Aashish Cantor ANP Pre-visit Planning (Pre-visit planning - LVM ) 06/26/2024 Telephone [facility] [address] [place] [address] Ivy Brewster RN 06/26/2024 Travel 05/28/2024 Refill [facility] [address] [place] [phone] Aashish Cantor ANP Insomnia, unspecified type 05/23/2024 Telephone [facility] [address] [place] [phone] Altagracia Thurman, RN Results 05/22/2024 Refill [facility] [address] [place] [address] Aashish Cantor ANP Low back pain at multiple sites 05/21/2024 Orders Only [facility] [address] [place] [phone] Aashish Cantor ANP Persistent depressive disorder (Primary Dx); Chronic bilateral low back pain without sciatica; Posttraumatic stress disorder 05/21/2024 Orders Only [facility] [address] [place] [phone] Aashish Cantor ANP PTSD (post-traumatic stress disorder) (Primary Dx); Chronic bilateral low back pain without sciatica; Persistent depressive disorder; Posttraumatic stress disorder 05/20/2024 Telephone [facility] [address] [place] [phone] Tirso Schafer [place] May05/20/2024 Orders Only [facility] [address] [place] [phone] Aashish Cantor ANP 05/20/2024 Refill [facility] [address] [place] [address] Aashish Cantor ANP Gastroesophageal reflux disease, unspecified whether esophagitis present (Primary Dx) 05/14/2024 10:00 AM EST Clinical Support [facility] [address] [place] [address] Ivy Brewster, MIKI Low back pain at multiple sites 05/14/2024 Telephone [facility] [address] [place] [address] Ivy Brewster RN 05/14/2024 Travel 05/08/2024 Refill [facility] [address] [place] [address] Aashish Cantor ANP Insomnia, unspecified type; Seborrheic dermatitis 04/22/2024 Refill [facility] [address] [place] [address] Aashish Cantor ANP Low back pain at multiple sites 04/12/2024 Telephone [facility] [address] [place] [address] Ivy Brewster RN 04/12/2024 Telephone [facility] [address] [place] [address] Aashish Cantor ANP from Last 3 Months Immunizations Name Administration Dates Next Due Hep B, adult 07/05/2018,12/17/2012,11/02/2012 TD (adult), 2 Lf tetanus tox oid, preservative free, adsorbed 05/31/2004 Td (adult), 5 Lf tetanus tox oid, preservative free, adsorbed 04/27/2012 Tdap 07/07/2015 Varicella 07/05/2018,12/17/2012 Family History Medical History Relation Name Comments Colon cancer Maternal Grandmother at 90 Liver cancer Mother's Brother 1 Pancreatic cancer Mother's Brother 2 Breast cancer Mother's Sister Relation Name Status Comments Maternal Grandmother Mother's Brother 1 Mother's Brother 2 Mother's Sister Alive Social History Tobacco Use Types Packs/Day Years Used Date Smoking Tobacco: Former Cigarettes Smokeless Tobacco: Never Tobacco Cessation:Counseling Given: Not Answered Alcohol Use Standard Drinks/Week Comments Not Currently 0 (1 standard drink = 0.6 oz pur e alcohol) Depression Answer Date Recorded Patient Health Questionnaire-9 Score 15 05/23/2024 Patient Health Questionnaire-9 Score 15 05/23/2024 Last PHQ-9: Questionnaire Data Not on file 1 07/24/2023 Housing Stability Answer Date Recorded What is your housing situation today? I have daja kerns 01/18/[address] you li ve. Do you have problems with any of the following? Pests such as bugs, ants, or mice 01/18/2024 Food Insecurity Answer Date Recorded Within the past 12 months, y ou worried that your food would run out before you got money to buy more: Never True 10/05/2023 Within the past 12 months,th e food you bought just didn't last and you didn't have enough money to get more: Never True 01/2024 Transportation Answer Date Recorded In the past 12 months, has l ack of transportation kept you from medical appts, meetings, work or from getting things needed for daily living? No 10/05/2023 Utilities Answer Date Recorded In the past 12 months, has t he electric, gas, oil or water company threatened to shut off services in your home? Yes 01/18/2024 Depression Answer Date Recorded Patient Health Questionnaire-2 Score 5 05/23/2024 Internet Access Answer Date Recorded Internet Access Q1 Yes 01/29/2024 Internet Access Q2 Not on file 01/29/2024 Comments No Sex and Gender Information Value Date Recorded Sex Assigned at Female 03/28/2022 10:19 AM EDT Legal Sex Female 10:19 AM EDT Gender Identity Choose not to disclose 10:19 AM EDT Sexual Orientation Choose not to disclose 2021 10:19 AM EDT Last Filed Vital Signs Vital Sign Reading Time Taken Comments Blood Pressure 116/74 06/28/2024 9:25 AM EST Pulse 78 06/28/2024 9:25 AM EST Temperature 36.9 ??C (98.5 ??F) 06/28/2024 9:25 AM ES T Respiratory Rate 18 06/28/2024 9:25 AM EST Oxygen Saturation 99% 06/28/2024 9:25 AM EST Inhaled Oxygen Concentration - - Weight 68.9 kg (151 lb 12.8 oz) 06/28/2024 9:25 AM EST Height 165.1 cm (5' 5 ) 01/18/2024 11:4 8 AM EDT Body Mass Index 25.26 01/18/2024 11:48 AM EDT Plan of Treatment Upcoming Encounters Date Type Department Care Team (Late st Contact Info) Description 07/10/2024 3:00 PM EST Office Visit [facility] [address] [place], [place] [phone] Aashish Cantor, ANP [address] [place] [phone] 07/22/2024 9:30 AM EST Telemedicine [facility] [address] [place], [place] [phone] Ivy Brewster, RN [address] [place], [place] [phone] Health Maintenance Due Date Last Done Comments Alcohol/Substance Use Screening 1993 Hepatitis A Vaccines (1 of 2 - Risk 2-dose series) 2000 COVID-19 Vaccine ( season) 2024 Influenza Vaccine (#1) 2024 Mammogram 10/24/2024 10/25/2023 Depression Monitoring (PHQ-9) 11/21/2024 05/23/2024, 05/23/2024 Family Planning (PISQ) 12/06/2024 12/07/2023 SDOH Screening 01/17/2025 01/18/2024 Tobacco Screening 05/21/2025 05/21/2024 Depression Screening 05/23/2025 05/23/2024, 05/23/20 24 DTaP/Tdap/Td Vaccines (2 - Td or Tdap) 07/07/2025 07/07/2015, 04/27/2012, 05/31/2004 Cervical Cancer Screening 10/25/2028 HPV/Cotest 10/25/2028 10/26/2023, 09/22/2016 Pap Smear 10/25/2028 10/26/2023, 09/22/2016 Zoster Vaccines (1 of 2) 2031 RSV Patients and Patients Aged 60 years or older (1 - 1-dose 75+ series) 2056 Hepatitis B Vaccines Completed 07/05/2018, 12/17/2012, 11/02/2012 HIV Screening Completed 10/11/2023, 06/29, 11/13/2020, Additional history exists Hepatitis C Screening Completed 10/11/2023 , 07/14/2022, 11/13/2020, Additional history exists HIB Vaccines Aged Out No longer eligi ble based on patient's age to complete this topic HPV Vaccines Aged Out No longer eligi ble based on patient's age to complete this topic IPV Vaccines Aged Out No longer eligi ble based on patient's age to complete this topic Meningococcal Vaccine Aged Out No juarez see eligible based on patient's age to complete this topic Pneumococcal Vaccine: Pediatrics (0 to 5 Years) and At-Risk Patients (6 to 49) Years) Aged Out No longer eligible based on patient's age to complete this topic RSV under 20 months Aged Out No longe r eligible based on patient's age to complete this topic Rotavirus Vaccines Aged Out No longer eligible based on patient's age to complete this topic Procedures Procedure Name Priority Date/Time Associated Diagnosis Comments POCT YANELY-14 URINE DRUG SCREEN Routine 05/14/2024 2:51 PM EST Low back pain at multiple sites HPV MRNA E6/E7 REFLEX TO HPV 16, 18/45 Routine 10/26/2023 2:02 PM EDT PAP SMEAR Routine 10/26/2023 2:02 PM EDT Cervical cancer screening BI MAMMOGRAM SCREENING TOMOSYNTHESIS BILATERAL Routine 10/25/2023 3:10 PM EDT HEPATITIS C AB W/REFL TO HCV RNA, QN, PCR Routine 10/11/2023 2:21 PM EDT Night sweats Routine screening for STI (sexually transmitted infection) HIV 1/2 ANTIGEN/ANTIBODY, FOURTH GENERATION W/RFL Routine 10/11/2023 2:21 PM EDT Night sweats Routine screening for STI (sexually transmitted infection) from Last 3 Months or Most Recently Relevant to Health Maintenance Results * POCT YANELY-14 Urine Drug Screen (05/14/2024 2:51 PM EST) THC Positive Urine Urine specimen obtained by clean catch procedure / Unknown 05/14/2024 2:51 PM EST Narrative Ivy Brewster RN - 05/14/2024 2:51 PM EST Lot# [id number] Exp: 05-04-25 us Aashish [facility] POINT OF CARE TEST ENTER/EDIT OR DERABLES Final Result * HPV mRNA E6/E7 w/Reflex to HPV Genotypes 16, 18/45 (10/26/2023 2:02 PM EDT) HPV nRNA E6/E7 Not Detected Not Detected [facility] Comment:Methodology: Transcr iption-Mediated AmplificationThis assay detects E6/E7 viral messenger RNA (mRNA) from 14high-risk HPV types (16,18,31,33,35,39,45,51,52,56,58,59,66,68).Cervical sources are required for HPV testing.If a vaginal source from a patient who has had atotal hysterectomy with removal of cervix wassubmitted, please contact the testing laboratoryfor alternative testing options.For additional information, please refer [email or web address].[employer]/faq/EEB147r8(This link if provided for information/educational purposes only.)THIS TEST WAS PERFORMED AT:[employer] [place] [phone] HILL MD HPV mRNA E6/E7 TNP [facility] HPV 16 [facility] HPV 18/45 RNA [facility] 10/26/2023 2:02 PM EDT 10/27/2023 8:30 AM EDT Gema Oneil CNM LAB CYTOLOGY ORDERABLES F inal Result [facility] [address] [place] [phone] * Pap Smear (10/26/2023 2:02 PM EDT) Swab Cervix uteri structure / Unknown 10/26/2023 2:02 PM EDT 10/27/2023 8:30 AM EDT [facility] - 11/13/2023 5:14 PM EDT ----- ------- Name: Rupal Jim ? Age/Sex: 43/F ? : 1980 Unit#: [id number] ?? Attend Dr: GEMA ONEIL [facility] ?Re10/26/23 ?Status: DEP REF ? Location: HO.LNP ?Disch: ? ----- ------- SPEC : [id number] ?RECD: 10/27/23-829 ? STATUS: ??SOUT ? REQ NUM: [id number] ? MARIAM: 10/26/23-1402 ? SUBM DR: GEMA ONEIL CNM ? ENTERED: ??10/27/23-3 ?SP TYPE: Pap Smr ?OTHR : ? ORDERED: ??Pap Smear ? Interpretation ?? Satisfactory for evaluation. ?? Negative for intraepithelial lesion or malignancy. ?? Coccobacilli consistent with shift in vaginal juliane. ? HPV mRNA E6/E7: ?NOT DETECTED ? This assay detects E6/E7 viral messenger RNA (mRNA) from 14 high-risk HPV types (16, 18, ?? 31, 33, 35, 39, 45, 51, 52, 56, 58, 59, 66, 68) ? HPV testing performed by [employer], [place], [place]. ??See reference laboratory ?? portion of the EMR for entire report. ?Clinical Information LMP: Unknown date Previous PAP test: 2017, WNL ? Material Received ?? ThinPrep-Vaginal/Cervical ----- ------- Signed (signature on file) Radha Stinson Pk 06/1713 ? ----- ------- ? END OF REPORT ? us Gema Oneil [facility] CYTOLOGY ORDERABLES F inal Result Performing Organization Address [facility]/State/ZIP Co de Phone Number [facility] [address] [place] [address] [phone] * BI Mammogram Screening Tomosynthesis Bilateral (10/25/2023 3:10 PM EDT) Anatomical Region Laterality Modality Breast Bilateral Mammography 10/25/2023 3:10 PM EDT Narrative 11/21/2023 5:11 PM EDT ? [facility] ? [address] ?[place] [phone] ? Mammography Report ? Signed ? Patient: Wilber Schafer,Rupal ?MR#: ?? [id number] ? : 1980 ?Acct:[id number] ? Age/Sex: 43 / F ?ADM Date: 05/29/24 ? Loc: HO.MAMMO ? Attending Dr: Aashish Cantor MASON HELPER ? Ordering Physician: DEVAUGHN,AASHISH [employer]ON HELPER ?Results: 1Negative ? Date of Service: 10/25/23 ?Follow Up: 1 Year From Orig ?? inal Mammogram ? Procedure(s): MM tomosynthesis screening BI ?? Accession Number(s): [id number] ? cc: Ariella Faye MD; AASHISH CANTOR NP ? EXAMINATION: ?? MM SCREENING DIGITAL BREAST TOMOSYNTHESIS, BILATERAL ? CLINICAL INFORMATION: ? Screening. Asymptomatic. ? COMPARISON: ?? Mammography: This is a baseline mammogram. ? TECHNIQUE: ?? Digital breast tomosynthesis is performed in both the craniocaudal and ?? mediolateral oblique views along with computer-aided detection (CAD). ?? Synthesized 2D images are generated from the tomosynthesis. ? FINDINGS: ?? There are scattered areas of fibroglandular density (ACR BI-RADS breast ?? composition Category b). ? There are no significant masses, abnormal calcifications, or other ?? abnormalities. ? MM/MM tomosynthesis screening BI ?? IMPRESSION: ?? No mammographic evidence of malignancy. ? ASSESSMENT: ? BI-RADS BI-RADS 1 - Negative ? RECOMMENDATION: ?? Routine annual mammography screening. ? 1 year F/U ? This examination should not preclude the clinical evaluation of a ?? suspicious palpable abnormality. ? This patient's information was entered into a reminder system with a ?? target due date for their next mammogram. ? Dictated By: ?Emily Huggins MD ? Signed By: ?<Electronically signed by Emily Huggins MD in OV> ? 11/21/231706 ? DD/ 1510 ? TD/TT: ? Business Management Analyst: ? Procedure Note Sheldon, Renata - 11/21/2023 [facility] [address] [place] [address] Mammography Report Signed Patient: Rupal JimMR#: [id number] : 1980Acct:[id number] Age/Sex: 43 / FADM Date: 10/25/23 Loc: HO.MAMMO Attending Dr: Aashish Cantor NP Ordering Physician: AASHISH CANTOR NPResults: 1Negative Date of Service: 10/25/23Follow Up: 1 Year From Orig inal Mammogram Procedure(s): MM tomosynthesis screening BI Accession Number(s): [id number] cc: Ariella Faye MD; AASHISH CANTOR NP EXAMINATION: MM SCREENING DIGITAL BREAST TOMOSYNTHESIS, BILATERAL CLINICAL INFORMATION: Screening. Asymptomatic. COMPARISON: Mammography: This is a baseline mammogram. TECHNIQUE: Digital breast tomosynthesis is performed in both the craniocaudal and mediolateral oblique views along with computer-aided detection (CAD). Synthesized 2D images are generated from the tomosynthesis. FINDINGS: There are scattered areas of fibroglandular density (ACR BI-RADS breast composition Category b). There are no significant masses, abnormal calcifications, or other abnormalities. MM/MM tomosynthesis screening BI IMPRESSION: No mammographic evidence of malignancy. ASSESSMENT: BI-RADS BI-RADS 1 - Negative RECOMMENDATION: Routine annual mammography screening. 1 year F/U This examination should not preclude the clinical evaluation of a suspicious palpable abnormality. This patient's information was entered into a reminder system with a target due date for their next mammogram. Dictated By: Emily Huggins MD Signed By: <Electronically signed by Emily Huggins MD in OV> 11/21/23 1707 DD/ 1510 TD/TT: Business Management Analyst: Aashish Cantor ANP IMG BI PROCEDURES Final Result * Hepatitis C Antibody with Reflex to HCV, RNA, Quantitative, Real-Time PCR (10/11/2023 2:21 PM EDT) Hepatitis C Antibody Nonreactive Nonreactive [facility] Comment:Antibodies to HCV no t detected; does not exclude early acuteHCV infection. Blood Venous blood specimen / Unknown 10/11/2023 2:21 PM EDT 10/11/2023 4:00 PM EDT Aashish Cantor [facility] BLOOD ORDERABLES Final Resul t Performing Organization Address [facility] Co de Phone Number [facility] [address] [place] [address] [phone] * HIV-1/2 Antigen and Antibodies, Fourth Generation, with Reflexes (10/11/2023 2:21 PM EDT) [facility] HIV AB/AG Nonreactive Nonreactive [facility] Comment:HIV-1 p24 Ag and/or HIV-1/HIV-2 Ab not detected.A test result that is nonreactive does not exclude thepossibility of exposure to or infection with HIV-1 and/orHIV-2. Nonreactive results in this assay for individualswith prior exposure to HIV-1 and/or HIV-2 may be due toantigen and antibody levels that are below the limit ofdetection of this assay.The [employer] HIV Ag/Ab Combo assay result andsupplemental assay results should be interpreted inconjunction with the patient's clinical presentation,history and other laboratory results. If the results areinconsistent with clinical evidence, additional testing issuggested to confirm the result. Blood Venous blood specimen / Unknown 10/11/2023 2:21 PM EDT 10/11/2023 4:00 PM EDT Aashish Cantor [facility] BLOOD ORDERABLES Final Resul t Performing Organization Address [facility]/ZIP Co de Phone Number [facility] [address] [place] [address] [phone] from Last 3 Months or Most Recently Relevant to Health Maintenance Insurance [facility] Care Teams Rpg Programmer Analyst Relationship Specialty Start Date End Date Aashish Cantor ANP [address] [place] [address] PCP - General Family Medicine 01/27/20
--- OUTSIDE RECORDS SUMMARY | 2024-06-28 10:45 | XMS_ITS | Encounter Summary ---
Author Organization [employer] Address 75 [facility] 7t [place] [address] Care Team Providers Care Operations Research Analyst Name Role Phone Allyn Salguero Primary Care Provider [phone] Reason for Visit * Reason Comments Med Refill Encounter Details Date Type Department Care Team ([facility] Contact Info) Description 01/03/2023 Refill [facility] [address] [place] [address] Allyn Salguero ANP [address] [place] [address] Low back pain at multiple sites Social History Tobacco Use Types Packs/Day Years Used Date Smoking Tobacco: Some Days Cigarettes Smokeless Tobacco: Never Alcohol Use Standard Drinks/Week Comments Yes 0 (1 standard drink = 0.6 oz pur e alcohol) Comments Unknown Sex and Gender Information Value Date Recorded Sex Assigned at Female 03/28/2022 10:19 AM EDT Legal Sex Female 10:19 AM EDT Gender Identity Choose not to disclose 10:19 AM EDT Sexual Orientation Choose not to disclose 2021 10:19 AM EDT documented as of this encounter Plan of Treatment Upcoming Encounters Date Type Department Care Team ([facility] Contact Info) Description 07/10/2024 3:00 PM EST Office Visit [facility] [address] [place] [address] Allyn Salguero ANP [address] [place] [address] 07/22/2024 9:30 AM EST Telemedicine [facility] [address] [place], [place] [phone] Ivy Brewster, MIKI [address] [place] [address] documented as of this encounter Visit Diagnoses Diagnosis Low back pain at multiple sites documented in this encounter Care Teams Operations Research Analyst Relationship Specialty Start Date End Date Allyn Salguero ANP [address] [place] [address] PCP - General Family Medicine 01/27/20 documented as of this encounter
--- OUTSIDE RECORDS SUMMARY | 2024-06-28 10:45 | XMS_ITS | Encounter Summary ---
Author Organization [email or web address] Address [address] [facility] [address] 7t [place] [address] Care Team Providers Care Two Way Radio Installer Name Role Phone Allyn Salguero Primary Care Provider [phone] Reason for Visit * Reason Comments Pre-visit Planning Pre-visit planning - LVM Encounter Details Date Type Department Care Team ([facility] st Contact Info) Description 06/27/2024 Patient Outreach [facility] [address] [place] [address] Allyn Salguero ANP [address] [place] [address] Pre-visit Planning (Pre-visit planning - LVM ) Social History Tobacco Use Types Packs/Day Years Used Date Smoking Tobacco: Former Cigarettes Smokeless Tobacco: Never Alcohol Use Standard Drinks/Week Comments Not Currently [...] AM EDT documented as of this encounter Progress Notes * Aileen Richardson - 06/27/2024 10:05 AM EST TRU Iyer placed outbound call to patient to complete pre-visit planning. No answer at this time. Patient name and were not confirmed. CC left voicemail requesting return call. Direct contact information provided. documented in this encounter Plan of Treatment Upcoming Encounters Date Type Department Care Team ([facility] st Contact Info) Description 07/10/2024 3:00 PM EST Office Visit [facility] MEDICINE [address] [place] [address] Allyn Salguero, ANP [address] [place] [address] 07/22/2024 9:30 AM EST Telemedicine [facility] MED [facility] PEDS [address] [place] [address] Ivy Brewster, RN [address] [place] [address] documented as of this encounter Visit Diagnoses Not on filedocumented in this encounter Additional Health Concerns Assessment Noted Time PHQ-9 Depression Total Score: 15 024 9:25 AM EST documented as of this encounter Care Teams Two Way Radio Installer Relationship Specialty Start Date End Date Allyn Salguero ANP [address] [place] [address] PCP - General Family Medicine 01/27/20 documented as of this encounter
--- OUTSIDE RECORDS SUMMARY | 2024-06-28 10:45 | XMS_ITS | Encounter Summary ---
Author Organization [employer] Address [address] [facility] [address] 7t [place] [address] Care Team Providers Care Pumper Gauger Apprentice Name Role Phone Allyn Salguero Primary Care Provider [phone] Reason for Visit * Reason Onset Date Comments Nurse Triage 06/27/2024 Encounter Details Date Type Department Care Team ([facility] st Contact Info) Description 06/27/[address] [facility] [address] [place] [address] Allyn Salguero ANP [address] [place] [address] Nurse Triage Social History Tobacco Use Types Packs/Day Years [...] AM EDT documented as of this encounter Miscellaneous Notes * Telephone Encounter - Cathi Lowe LPN - 06/27/2024 3:15 PM EST Triage call returned with BLS #[id number] [place]. Patient reports lower abdominal pain more to the left side for three days with no noted improvement. Patient has no fever no nausea vomiting or diarrhea. Patient maintains upright posture. Patient with [employer] insurance and home evaluation offered and declined. Disposition reviewed and patient in agreement with plan. ASK/Cleveland Kirk LINK TRAINER tomorrow at 9am. Reviewed with patient home care recommendations, reasons to call back and symptoms that require immediate evaluation in UC or ER. Patient verbalized understanding and agrees. Protocol Used: Abdominal Pain - Female (Adult) Protocol-Based Disposition: See in Office or Video Visit Today or Tomorrow Positive Triage Question: * Mild pain (e.g., does not interfere with normal activities) and pain comes and goes (cramps) lasts > 48 hours (Exception: This same abdominal pain is a chronic symptom recurrent or ongoing AND present > 4 weeks.) * All higher-acuity triage questions were negative Care Advice Discussed: * Drink Clear Fluids * Diet * Reasons To Call Back - Severe pain lasts over 1 hour - Constant pain lasts over 2 hours - Intermittent pains (comes and goes, cramps) lasts over 48 hours - You become worse * Telephone Encounter - Jayme Laurent - 06/27/2024 2:13 PM EST Symptom: Abdominal Pain - Female - Not Outcome: Schedule an urgent appointment (within 4 hours) or talk to a nurse or provider soon Reason: Started within the past 3 days The caller accepted this outcome. Contact pt at [phone] documented in this encounter Plan of Treatment Upcoming Encounters Date Type Department Care Team (Late st Contact Info) Description 07/10/2024 3:00 PM EST Office [address] [facility] [address] [place] [address] Allyn Salguero ANP [address] [place] [address] 07/22/2024 9:[address] [facility] [address] [place] [address] Ivy Brewster, RN [address] [place] [address] documented as of this encounter Visit Diagnoses Not on filedocumented in this encounter Additional Health Concerns Assessment Noted Time PHQ-9 Depression Total Score: 15 024 9:25 AM EST documented as of this encounter Care Teams Pumper Gauger Apprentice Relationship Specialty Start Date End Date Allyn Salguero ANP [address] [place] [address] PCP - General Family Medicine 01/27/20 documented as of this encounter
--- OUTSIDE RECORDS SUMMARY | 2024-06-28 10:45 | XMS_ITS | Encounter Summary ---
Author Organization [employer] Address 75 [facility] 7t [place] [address] Care Team Providers Care Skill Labor Name Role Phone Allyn Salguero Primary Care Provider [phone] Encounter Details Date Type Department Care Team ([facility] Contact Info) Description 09/09/2022 Orders Only [facility] MED & PEDS [address] [place] [address] Iliana Mason LPN Social History Tobacco Use Types Packs/Day Years [...] Encounters Date Type Department Care Team (Late Contact Info) Description 07/10/2024 3:00 PM EST Office Visit [facility] MEDICINE [address] [place] [address] Allyn Salguero ANP [address] [place] [address] 07/22/2024 9:30 AM EST Telemedicine [facility] MED & PEDS [address] [place] [address] Ivy Brewster, RN [address] [place] [address] documented as of this encounter Visit Diagnoses Not on filedocumented in this encounter Care Teams Skill Labor Relationship Specialty Start Date End Date Allyn Salguero ANP [address] [place] [address] PCP - General Family Medicine 01/27/20 documented as of this encounter
--- OUTSIDE RECORDS SUMMARY | 2024-06-28 10:45 | XMS_ITS | Encounter Summary ---
Author Organization [employer] Address 75 [facility] 7t [place] [address] Care Team Providers Care Orchid Superintendent Name Role Phone Allyn Salguero Primary Care Provider [phone] Reason for Visit * Reason Comments Med Refill Encounter Details Date Type Department Care Team ([facility] Contact Info) Description 03/14/2023 Refill [facility] MEDICINE [address] [place] [address] Allyn Salguero ANP [address] [place] [address] Low back pain at multiple sites Social [...] Upcoming Encounters Date Type Department Care Team ([facility] Contact Info) Description 07/10/2024 3:00 PM EST Office Visit [facility] MEDICINE [address] [place] [address] Allyn Salguero ANP [address] [place] [address] 07/22/2024 9:30 AM EST Telemedicine [facility] MED & PEDS [address] [place], [place] [phone] Ivy Brewster, MIKI [address] [place] [address] documented as of this encounter Visit Diagnoses Diagnosis Low back pain at multiple sites documented in this encounter Care Teams Orchid Superintendent Relationship Specialty Start Date End Date Allyn Salguero ANP [address] [place] [address] PCP - General Family Medicine 01/27/20 documented as of this encounter
--- OUTSIDE RECORDS SUMMARY | 2024-06-28 10:45 | XMS_ITS | Encounter Summary ---
Author Organization [employer] Address 75 [facility] 7t [place] [address] Care Team Providers Care Correction Officer Supervisor Name Role Phone Allyn Salguero Primary Care Provider [phone] Reason for Visit * Reason Comments Med Refill Encounter Details Date Type Department Care Team ([facility] Contact Info) Description 03/14/2023 Refill [facility]INE [address] [place] [address] Allyn Salguero ANP [address] [place] [address] Low back pain at multiple sites Social [...] Upcoming Encounters Date Type Department Care Team ([facility] Contact Info) Description 07/10/2024 3:00 PM EST Office Visit [facility] MED[facility]INE [address] [place] [address] Allyn Salguero ANP [address] [place] [address] 07/22/2024 9:30 AM EST Telemedicine [facility] MED & PEDS [address] [place], [place] [phone] Ivy Brewster, MIKI [address] [place] [address] documented as of this encounter Visit Diagnoses Diagnosis Low back pain at multiple sites documented in this encounter Care Teams Correction Officer Supervisor Relationship Specialty Start Date End Date Allyn Salguero ANP [address] [place] [address] PCP - General Family Medicine 01/27/20 documented as of this encounter
--- OUTSIDE RECORDS SUMMARY | 2024-06-28 10:45 | XMS_ITS | Encounter Summary ---
Author Organization [employer] Address [address] [facility] [address] 7t [place] [address] Care Team Providers Care Heavy Equipment Operator/Paver Name Role Phone Allyn Salguero Primary Care Provider [phone] Reason for Visit * Reason Onset Date Comments Appointment Request 02/21/2024 Encounter Details Date Type Department Care Team ([facility] st Contact Info) Description 02/21/2024 Telephone [facility]INE [address] [place] [address] Allyn Salguero ANP [address] [place] [address] Appointment Request Social History Tobacco Use Types Packs/Day Years Used Date Smoking Tobacco: Former Cigarettes Smokeless Tobacco: Never Alcohol Use Standard Drinks/Week Comments Not Currently 0 (1 standard drink = 0.6 oz pur e alcohol) Depression Answer Date Recorded Patient Health Questionnaire-9 Score 12 01/18/2024 Patient Health Questionnaire-9 Score 12 01/18/2024 Last PHQ-9: Questionnaire Data Not on file 0 01/18/2024 Housing Stability Answer Date Recorded What is [...] Answer Date Recorded Patient Health Questionnaire-2 Score 3 01/18/2024 Internet Access Answer Date Recorded Internet Access [...] encounter Miscellaneous Notes * Telephone Encounter - Freddie Tuttle - 02/21/2024 2:50 PM EDT Tc from patient calling to cancel natural resources faculty member appt for 02/21 and would like a call back to reschedule documented in this encounter Plan of Treatment Upcoming Encounters Date Type Department Care Team (Late st Contact Info) Description 07/10/2024 3:00 PM EST Office Visit [facility] MEDICINE [address] [place] [address] Allyn Salguero ANP [address] [place] [address] 07/22/2024 9:30 AM EST Telemedicine [facility] MED & PEDS [address] [place] [address] Ivy Brewster, MIKI [address] [place] [address] documented as of this encounter Visit Diagnoses Not on filedocumented in this encounter Additional Health Concerns Assessment Noted Time PHQ-9 Depression Total Score: 12 024 12:32 PM EDT documented as of this encounter Care Teams Heavy Equipment Operator/Paver Relationship Specialty Start Date End Date Allyn Salguero ANP [address] [place] [address], [place] [address] PCP - General Family Medicine 01/27/20 documented as of this encounter
--- OUTSIDE RECORDS SUMMARY | 2024-06-28 10:45 | XMS_ITS | Encounter Summary ---
Author Organization [employer] Address [address] [facility] [address] 7t [place] [address] Care Team Providers Care Renewable Energy Trader Name Role Phone Allyn Salguero Primary Care Provider [phone] Encounter Details Date Type Department Care Team (Latest Contact Info) Description 06/26/2024 Travel Social History Tobacco Use Types Packs/Day Years [...] Description 07/10/2024 3:00 PM EST Office Visit [facility] MEDICINE [address] [place] [address] Allyn Salguero ANP [address] [place] [address] 07/22/2024 9:30 AM EST Telemedicine [facility] MED [facility] PEDS [address] [place] [address] Ivy Brewster, RN [address] [place] [address] documented as of this encounter Visit Diagnoses Not on filedocumented in this encounter Additional Health Concerns Assessment Noted Time PHQ-9 Depression Total Score: 15 024 9:25 AM EST documented as of this encounter Care Teams Renewable Energy Trader Relationship Specialty Start Date End Date Allyn Salguero ANP [address] [place] [address] PCP - General Family Medicine 01/27/20 documented as of this encounter
--- OUTSIDE RECORDS SUMMARY | 2024-06-28 10:45 | XMS_ITS | Encounter Summary ---
Author Organization [employer] Address [address] [facility] [address] 7t [place] [address] Care Team Providers Care Loss Prevention Associate Name Role Phone Allyn Salguero Primary Care Provider [phone] Encounter Details Date Type Department Care Team ([facility] Contact Info) Description 06/26/[address] [facility] MED & PEDS [address] [place] [address] Ivy Brewster, MIKI [address] [place] [address] Social History Tobacco Use Types Packs/Day Years [...] encounter Miscellaneous Notes * Telephone Encounter - Ivy Brewster RN - 06/26/2024 12:01 PM EST TC to pt. MICA PARTS SPRAYER appt was accidentally scheduled on 07/15/24, [facility] is closed that day for a holiday. Appt r/s to 07/22/24 9:30@ am. documented in this encounter Plan of Treatment Upcoming Encounters Date Type Department Care Team (Late st Contact Info) Description 07/10/2024 3:00 PM EST Office Visit [facility] MEDICINE [address] [place] [address] Allyn Salguero ANP [address] [place] [address] 07/22/2024 9:30 AM EST Telemedicine [facility] MED & PEDS [address] [place] [address] Ivy Brewster RN [address] [place] [address] documented as of this encounter Visit Diagnoses Not on filedocumented in this encounter Additional Health Concerns Assessment Noted Time PHQ-9 Depression Total Score: 15 024 9:25 AM EST documented as of this encounter Care Teams Loss Prevention Associate Relationship Specialty Start Date End Date Allyn Salguero ANP [address] [place] [address] PCP - General Family Medicine 01/27/20 documented as of this encounter
--- OUTSIDE RECORDS SUMMARY | 2024-06-28 10:45 | XMS_ITS | Encounter Summary ---
Author Organization [employer] Address [address] [facility] [address] 7t [place] [address] Care Team Providers Care Plush Finisher Name Role Phone Allyn Salguero Primary Care Provider [phone] Encounter Details Date Type Department Care Team (Late st Contact Info) Description 05/21/2024 Orders Only [facility] MEDICINE [address] [place] [address] Allyn Salguero ANP [address] [place] [address] Persistent depressive disorder (Primary Dx); Chronic bilateral low back pain without sciatica; Posttraumatic stress disorder Social History Tobacco Use Types Packs/Day Years [...] Description 07/10/2024 3:00 PM EST Office Visit [facility] MEDICINE [address] [place] [address] Allyn Salguero ANP [address] [place] [address] 07/22/2024 9:30 AM EST Telemedicine [facility] MED & PEDS [address] [place] [address] Ivy Brewster, RN [address] [place] [address] documented as of this encounter Visit Diagnoses Diagnosis Persistent depressive disorder- Primary Chronic bilateral low back pain without sciatica Posttraumatic stress disorder documented in this encounter Additional Health Concerns Assessment Noted Time PHQ-9 Depression Total Score: 12 024 12:32 PM EDT documented as of this encounter Care Teams Plush Finisher Relationship Specialty Start Date End Date Allyn Salguero ANP [address] [place] [address] PCP - General Family Medicine 01/27/20 documented as of this encounter
--- OUTSIDE RECORDS SUMMARY | 2024-06-28 10:45 | XMS_ITS | Encounter Summary ---
Author Organization [employer] Address [address] [facility] [address] 7t [place] [address] Care Team Providers Care Head Resident Name Role Phone Allyn Salguero Primary Care Provider [phone] Reason for Visit * Reason Comments Med Refill Encounter Details Date Type Department Care Team ([facility] st Contact Info) Description 05/22/2024 Refill [facility] MED & PEDS [address] [place] [address] Allyn Salguero ANP [address] [place] [address] Low back pain at multiple sites Social [...] Description 07/10/2024 3:00 PM EST Office Visit [facility] MEDICINE [address] [place] [address] Allyn Salguero ANP [address] [place] [address] 07/22/2024 9:30 AM EST Telemedicine [facility] MED & PEDS [address] [place] [address] Ivy Brewster, RN [address] [place] [address] documented as of this encounter Visit Diagnoses Diagnosis Low back pain at multiple sites documented in this encounter Additional Health Concerns Assessment Noted Time PHQ-9 Depression Total Score: 12 024 12:32 PM EDT documented as of this encounter Care Teams Head Resident Relationship Specialty Start Date End Date Allyn Salguero ANP [address] [place] [address] PCP - General Family Medicine 01/27/20 documented as of this encounter
--- OUTSIDE RECORDS SUMMARY | 2024-06-28 10:45 | XMS_ITS | Encounter Summary ---
Author Organization [employer] Address 75 [facility] 7t [place] [address] Care Team Providers Care Financial Aid Officer Name Role Phone Allyn Salguero JENNIFER Primary Care Provider [phone] Reason for Referral * Imaging (Routine) - Authorized Specialty Diagnoses / Procedures Referred By Drew ambrose Referred To Contact Radiology Diagnoses LLQ pain Procedures US Abdomen Complete Natasha Lindsey CNP [address] [place] [address] Phone: tel: fax: [address] Phone: tel: fax: Referral ID Status Reason Start Date Expiration Date V isits Requested Visits Authorized [id number] Authorized 06/28/2024 06/28/2025 1 1 Reason for Visit * Reason Comments Flank Pain Encounter Details Date Type Department Care Team (Late st Contact Info) Description 06/28/2024 9:00 AM EST Office Visit [facility] MEDICINE [address] [place] [address] Natasha Lindsey CNP [address] [place], [place] [phone] LLQ pain (Primary Dx) Social History Tobacco Use Types Packs/Day Years [...] AM EDT documented as of this encounter Last Filed Vital Signs Vital Sign Reading [...] 12.8 oz) 06/28/2024 9:25 AM EST Height - - Body Mass Index 25.26 01/18/2024 11:48 AM EDT documented in this encounter Miscellaneous Notes * Assessment & Plan Note - Natasha Lindsey CNP - 06/28/2024 9:58 AM EST Associated Problem(s): LLQ pain Pt physical exam wnl, abdominal exam unremarkeable, no masses palpated, no guarding, no rebound tenderness, no color changes, +BS, VSS Will obtain CBC to r/o GI bleed and infectious etiology and abdominal U/S today Will f/u with results documented in this encounter Plan of Treatment Upcoming Encounters Date Type Department Care Team (Late st Contact Info) Description 07/10/2024 3:00 PM EST Office Visit [facility] MEDICINE [address] [place] [address] Allyn Salguero ANP [address] [place], [place] [phone] 07/22/2024 9:30 AM EST Telemedicine [facility] MED & PEDS [address] [place] [address] Ivy Brewster, RN 505 [place] [address] Scheduled Orders Name Type Priority Associated Diagnoses Orde r Schedule CBC auto differential Lab Routine LLQ pain Expected: 06/28/2024 (Approximate), Expires: 06/28/2025 US Abdomen Complete Imaging Routine LLQ pain Expected: 06/28/2024, Expires: 06/28/2025 documented as of this encounter Visit Diagnoses Diagnosis LLQ pain- Primary Abdominal pain, left lower quadrant documented in this encounter Additional Health Concerns Assessment Noted Time PHQ-9 Depression Total Score: 15 024 9:25 AM EST documented as of this encounter Care Teams Financial Aid Officer Relationship Specialty Start Date End Date Allyn Salguero ANP [address] [place] [address] PCP - General Family Medicine 01/27/20 documented as of this encounter
--- OUTSIDE RECORDS SUMMARY | 2024-06-28 10:45 | XMS_ITS | Encounter Summary ---
Author Organization [employer] Address [address] [facility] [address] 7t [place] [address] Care Team Providers Care Projects Manager Name Role Phone Allyn Salguero Primary Care Provider [phone] Reason for Visit * Reason Comments Med Refill Encounter Details Date Type Department Care Team ([facility] st Contact Info) Description 05/28/2024 Refill [facility] MEDICINE 230 [place] [address] Allyn aSlguero ANP 230 [place] [address] Insomnia, unspecified type Social History Tobacco Use Types Packs/Day Years [...] Description 07/10/2024 3:00 PM EST Office Visit [facility] MEDICINE [address] [place] [address] Allyn Salguero ANP 230 [place] [address] 07/22/2024 9:30 AM EST Telemedicine [facility] MED & PEDS 505 [place] [address] Ivy Brewster, RN 505 [place] [address] documented as of this encounter Visit Diagnoses Diagnosis Insomnia, unspecified type documented in this encounter Additional Health Concerns Assessment Noted Time PHQ-9 Depression Total Score: 15 024 9:25 AM EST documented as of this encounter Care Teams Projects Manager Relationship Specialty Start Date End Date Allyn Salguero ANP [address] [place] [address] PCP - General Family Medicine 01/27/20 documented as of this encounter
--- OUTSIDE RECORDS SUMMARY | 2024-06-28 10:45 | XMS_ITS | Encounter Summary ---
Author Organization [employer] Address 75 [facility] 7t [place] [address] Care Team Providers Care Kiln Stacker Name Role Phone Allyn Salguero Primary Care Provider [phone] Reason for Visit * Reason Comments Med Refill Encounter Details Date Type Department [facility] ([facility] Contact Info[facility] Description 05/05/[address] [facility] MEDICINE [address] [place] [address] Allyn Salguero ANP [address] [place] [address] Low back pain at multiple sites Social [...] Upcoming Encounters Date Type Department Care Team ([facility] Contact Info) Description 07/10/2024 3:00 PM EST Office Visit [facility] MEDICINE [address] [place] [address] Allyn Salguero ANP [address] [place] [address] 07/22/2024 9:30 AM EST Telemedicine [facility] CH[facility] MED & PEDS 505 [place], [place] [phone] Ivy Brewster, MIKI 505 [place] [address] documented as of this encounter Visit Diagnoses Diagnosis Low back pain at multiple sites documented in this encounter Care Teams Kiln Stacker Relationship Specialty Start Date End Date Allyn Salguero ANP 230 [place] [address] PCP - General Family Medicine 01/27/20 documented as of this encounter
--- OUTSIDE RECORDS SUMMARY | 2024-06-28 10:45 | XMS_ITS | Encounter Summary ---
Author Organization [employer] Address 75 [facility] 7t [place] [address] Care Team Providers Care Mechanical Drafter Name Role Phone Allyn Salguero Primary Care Provider [phone] Reason for Visit * Reason Comments Med Refill Encounter Details Date Type Department Care Team ([facility] Contact Info) Description 09/16/2022 Refill [facility] MEDICINE [address] [place] [address] Allyn Salguero ANP [address] [place] [address] Low back pain at multiple sites Social [...] Upcoming Encounters Date Type Department Care Team ([facility] Contact Info) Description 07/10/2024 3:00 PM EST Office Visit [facility] MEDICINE [address] [place] [address] Allyn Salguero ANP [address] [place] [address] 07/22/2024 9:30 AM EST Telemedicine [facility] MED & PEDS 505 [place], [place] [phone] Ivy Brewster, MIKI 505 [place] [address] documented as of this encounter Visit Diagnoses Diagnosis Low back pain at multiple sites documented in this encounter Care Teams Mechanical Drafter Relationship Specialty Start Date End Date Allyn Salguero ANP 230 [place] [address] PCP - General Family Medicine 01/27/20 documented as of this encounter
[2024-06-28 12:27] LABS: MANUAL DIFF FLAG NO
[2024-06-28 12:34] LABS: Basophils Percent Auto 0.4 % (0-2); Eosinophils Absolute Auto 0.1 X10*3/uL (0.0-0.4); Eosinophils Percent Auto 1.3 % (0-4); Hematocrit 37.3 % (37.0-47.0); Hemoglobin 12.5 g/dl (12.0-16.0); Imm Gran Abs Auto 0.02 X10*3/uL (0.00-0.03); Imm Gran Pct Auto 0.3 % (0.0-0.4); Lymphocytes Absolute Auto 1.8 X10*3/uL (1.2-4.9); Lymphocytes Percent Auto 26.2 % (20-40); Mean Corpuscular HGB Conc 33.5 g/dl (31.0-35.0); Mean Corpuscular Hemoglobin 32.6 pg (27.0-33.0); Mean Corpuscular Volume 97.4 fL (80.0-98.0); Mean Platelet Volume 9.4 fL (9.4-12.3); Monocytes Absolute Auto 0.7 X10*3/uL (0.1-1.2); Monocytes Percent Auto 9.9 % (2-11); Neutrophils Absolute Auto 4.3 x10*3/uL (2.0-8.3); Neutrophils Percent Auto 61.9 % (45-73); Platelet Count 310 X10*3/uL (160-400); Red Blood Count 3.83 X10*6/uL (4.20-5.50); Red Cell Distribution Width 12.2 % (11.0-16.0); White Blood Count 6.9 X10*3/uL (4.8-10.8)
== END 2024-06-28 10:04 | disposition home or self-care (01) ==
LOC: HO.HHCL 10:03
DX: R10.32 Left lower quadrant pain (principal)
CPT/HCPCS: 36415; 85025

== ENCOUNTER 2024-07-24 08:08 | Outpatient (REF) | payer OTHER, SELFPAY ==
--- NOTE | ~2024-07-24 | US_ITS ---
EXAMINATION: US ABDOMEN HISTORY: LLQ PAIN TECHNIQUE: Real-time grayscale ultrasound imaging of the abdomen was performed and images were reviewed. COMPARISON: Comparison is made with the prior examination dated 08/05/2022. FINDINGS: Liver: The right lobe of the liver measures 14.9 cm in size. The left lobe of the liver measures 10.2 cm in size. The liver demonstrates normal homogeneous echotexture. No focal mass or intrahepatic biliary ductal dilatation is identified. There is normal hepatopedal flow in the portal vein. Gallbladder and biliary tree: The gallbladder is unremarkable, without evidence of calculi, wall thickening, or pericholecystic fluid. There is no sonographic Nickerson sign. The common bile duct is normal in caliber measuring 3 mm. Kidneys: The right kidney measures 10.7 cm in length. The left kidney measures 11.1 cm in length. The kidneys are unremarkable, without evidence of masses, hydronephrosis, or calculi. Pancreas: The pancreatic head, neck, and body are unremarkable. The pancreatic tail is obscured by bowel gas. Spleen: The spleen is normal in size and contour, measuring 8.8 cm in length. Abdominal aorta and inferior vena cava: The visualized portions of the abdominal aorta and inferior vena cava are normal in caliber. There is no free fluid in the abdomen. US/US abdomen complete IMPRESSION: Unremarkable abdominal ultrasound. Electronically signed by: Charan Fortune MD 07/24/2024 10:00 AM [facility]
--- OUTSIDE RECORDS SUMMARY | 2024-07-24 08:25 | XMS_ITS | Encounter Summary ---
Author Organization [employer] Address 75 [facility] 7t [place] [address] Care Team Providers Care Director Food And Beverage Name Role Phone Allyn Salguero Primary Care Provider [phone] Reason for Visit * Reason Comments Med Refill Encounter Details Date Type Department Care Team ([facility] Contact Info) Description 03/14/2023 Refill [facility] MEDICINE 230 [place] [address] Allyn Salguero ANP 230 [place] [address] Low back pain at multiple sites Social [...] Upcoming Encounters Date Type Department Care Team ([facility] Contact Info) Description 10/09/2024 2:15 PM EDT Clinical Support [facility] CHC MED & PEDS 505 [place], [place] [phone] Ivy Brewster, MIKI 505 [place] [address] documented as of this encounter Visit Diagnoses Diagnosis Low back pain at multiple sites documented in this encounter Care Teams Director Food And Beverage Relationship Specialty Start Date End Date Allyn Salguero ANP [address] [place] [address] PCP - General Family Medicine 01/27/20 documented as of this encounter
--- OUTSIDE RECORDS SUMMARY | 2024-07-24 08:25 | XMS_ITS | Encounter Summary ---
Author Organization [employer] Address 75 [facility] 7t [place] [address] Care Team Providers Care Dairy Consultant Name Role Phone Allyn Salguero Primary Care Provider Reason for Visit * Reason Comments Med Refill Encounter Details Date Type Department Care Team ([facility] Contact Info) Description 03/14/2023 Refill [facility] MEDICINE 230 [place] [address] Allyn Salguero ANP 230 [place] [address] Low back pain at multiple sites Social [...] Upcoming Encounters Date Type Department Care Team ([facility] Contact Info) Description 10/09/2024 2:15 PM EDT Clinical Support [facility] CH[facility] MED & PEDS 505 [place], [place] [phone] Ivy Brewster, MIKI 505 [place] [address] documented as of this encounter Visit Diagnoses Diagnosis Low back pain at multiple sites documented in this encounter Care Teams Dairy Consultant Relationship Specialty Start Date End Date Allyn Salguero ANP [address] [place] [address] PCP - General Family Medicine 01/27/20 documented as of this encounter
--- OUTSIDE RECORDS SUMMARY | 2024-07-24 08:25 | XMS_ITS | Encounter Summary ---
Author Organization [employer] Address [address] [facility] [address] 7t [place] [address] Care Team Providers Care Rd Scientist Name Role Phone Allyn Salguero Primary Care Provider [phone] Reason for Visit * Reason Onset Date Comments Appointment Request 02/21/2024 Encounter Details Date Type Department Care Team ([facility] st Contact Info) Description 02/21/2024 Telephone [facility] MEDICINE 230 [place] [address] Allyn Salguero ANP 230 [place] [address] Appointment Request Social History Tobacco Use Types [...] EDT Tc from patient calling to cancel cognos consultant appt for 02/21 and would like a call back to reschedule documented in this encounter Plan of Treatment Upcoming Encounters Date Type Department Care Team (Late st Contact Info) Description 10/09/2024 2:15 PM EDT Clinical Support [facility] MED & PEDS 505 [place] [address] Ivy Brewster, RN 505 [place] [address] documented as of this encounter Visit Diagnoses Not on filedocumented in this encounter Additional Health Concerns Assessment Noted Time PHQ-9 Depression Total Score: 12 024 12:32 PM EDT documented as of this encounter Care Teams Rd Scientist Relationship Specialty Start Date End Date Allyn Salguero ANP 230 [place] [address] PCP - General Family Medicine 01/27/20 documented as of this encounter
--- OUTSIDE RECORDS SUMMARY | 2024-07-24 08:25 | XMS_ITS | Encounter Summary ---
Author Organization [employer] Address 75 [facility] 7t [place] [address] Care Team Providers Care Auto Locator Name Role Phone Allyn Salguero Primary Care Provider [phone] Reason for Visit * Reason Comments Med Refill Encounter Details Date Type Department Care Team ([facility] Contact Info) Description 05/05/2023 Refill [facility] MEDICINE 230 [place] [address] Allyn Salguero ANP 230 [place] [address] Low back pain at multiple sites Social [...] Upcoming Encounters Date Type Department Care Team ([facility] Contact Info) Description 10/09/2024 2:15 PM EDT Clinical Support [facility] CHC MED & PEDS 505 [place], [place] [phone] Ivy Brewster, MIKI 505 [place] [address] documented as of this encounter Visit Diagnoses Diagnosis Low back pain at multiple sites documented in this encounter Care Teams Auto Locator Relationship Specialty Start Date End Date Allyn Salguero ANP [address] [place] [address] PCP - General Family Medicine 01/27/20 documented as of this encounter
--- OUTSIDE RECORDS SUMMARY | 2024-07-24 08:26 | XMS_ITS | Encounter Summary ---
Author Organization [employer] Address [address] [facility] [address] 7t [place] [address] Care Team Providers Care Emergency Room Registered Nurse Name Role Phone Allyn Salguero Primary Care Provider [phone] Reason for Visit * Reason Comments CHW - Office Visit Encounter Details Date Type Department Care Team ([facility] st Contact Info) Description 07/10/2024 3:00 PM EST Office Visit [facility] MEDICINE 230 [place] [address] Allyn Salguero ANP 230 [place] [address] Night sweats (Primary Dx); LLQ pain Social History Tobacco Use Types Packs/Day Years [...] Sign Reading Time Taken Comments Blood Pressure 122/80 07/10/2024 3:41 PM EST Pulse 85 07/10/2024 3:41 PM EST Temperature 36.3 ??C (97.4 ??F) 07/10/2024 3:41 PM ES T Respiratory Rate 16 07/10/2024 3:41 PM EST Oxygen Saturation 97% 07/10/2024 3:41 PM EST Inhaled Oxygen Concentration - - Weight 68.9 kg (152 lb) 07/10/2024 3:41 PM EST Height - - Body Mass Index 25.29 01/18/2024 11:48 AM EDT documented in this encounter Plan of Treatment Upcoming Encounters Date Type Department Care Team (Late st Contact Info) Description 10/09/2024 2:15 PM EDT Clinical Support [facility] MED & PEDS 505 [place] [address] Ivy Brewster, MIKI 505 [place] [address] documented as of this encounter Visit Diagnoses Diagnosis Night sweats- Primary Generalized hyperhidrosis LLQ pain Abdominal pain, left lower quadrant documented in this encounter Additional Health Concerns Assessment Noted Time PHQ-9 Depression Total Score: 15 024 9:25 AM EST documented as of this encounter Care Teams Emergency Room Registered Nurse Relationship Specialty Start Date End Date Allyn Salguero ANP 230 [place] [address] PCP - General Family Medicine 01/27/20 documented as of this encounter
--- OUTSIDE RECORDS SUMMARY | 2024-07-24 08:26 | XMS_ITS | Encounter Summary ---
Author Organization [employer] Address [address] [facility] [address] 7t [place] [address] Care Team Providers Care Tie In Machine Operator Name Role Phone Allyn Salguero Primary Care Provider [phone] Reason for Visit * Reason Comments Med Refill Encounter Details Date Type Department Care Team ([facility] st Contact Info) Description 05/22/2024 Refill [facility] MED & PEDS [address] [place] [address] Allyn Salguero ANP 230 [place] [address] Low back pain at multiple sites Social [...] Upcoming Encounters Date Type Department Care Team ([facility] st Contact Info) Description 10/09/2024 2:15 PM EDT Clinical Support [facility] MED & PEDS 505 [place] [address] Ivy Brewster, RN 505 [place] [address] documented as of this encounter Visit Diagnoses Diagnosis Low back pain at multiple sites documented in this encounter Additional Health Concerns Assessment Noted Time PHQ-9 Depression Total Score: 12 024 12:32 PM EDT documented as of this encounter Care Teams Tie In Machine Operator Relationship Specialty Start Date End Date Allyn Salguero ANP [address] [place] [address] PCP - General Family Medicine 01/27/20 documented as of this encounter
--- OUTSIDE RECORDS SUMMARY | 2024-07-24 08:26 | XMS_ITS | Encounter Summary ---
Author Organization [employer] Address [address] [facility] [address] 7t [place] [address] Care Team Providers Care Casing Splitter Name Role Phone Allyn Salguero Primary Care Provider [phone] Encounter Details Date Type Department Care Team [...] Upcoming Encounters Date Type Department Care Team ([facility] st Contact Info) Description 10/09/2024 2:15 PM EDT Clinical Support [facility] MED & PEDS 505 [place] [address] Ivy Brewster, MIKI 505 [place] [address] documented as of this encounter Visit Diagnoses Not on filedocumented in this encounter Additional Health Concerns Assessment Noted Time PHQ-9 Depression Total Score: 15 024 9:25 AM EST documented as of this encounter Care Teams Casing Splitter Relationship Specialty Start Date End Date Allyn Salguero ANP 230 [place] [address] PCP - General Family Medicine 01/27/20 documented as of this encounter
--- OUTSIDE RECORDS SUMMARY | 2024-07-24 08:26 | XMS_ITS | Encounter Summary ---
Author Organization [employer] Address [address] [facility] [address] 7t [place] [address] Care Team Providers Care Cook Dessert Name Role Phone Allyn Salguero Primary Care Provider [phone] Reason for Visit * Reason Comments Pre-visit Planning Pre-visit planning - LVM Encounter Details Date Type Department Care Team ([facility] st Contact Info) Description 06/27/2024 Patient Outreach [facility] MEDICINE 230 [place] [address] Allyn Salguero ANP 230 [place] [address] Pre-visit Planning (Pre-visit planning - LVM ) [...] Upcoming Encounters Date Type Department Care Team ([facility] st Contact Info) Description 10/09/2024 2:15 PM EDT Clinical Support [facility] CHC MED & PEDS 505 [place] [address] Ivy Brewster, MIKI 505 [place] [address] documented as of this encounter Visit Diagnoses Not on filedocumented in this encounter Additional Health Concerns Assessment Noted Time PHQ-9 Depression Total Score: 15 024 9:25 AM EST documented as of this encounter Care Teams Cook Dessert Relationship Specialty Start Date End Date Allyn Salguero ANP [address] [place] [address] PCP - General Family Medicine 01/27/20 documented as of this encounter
--- OUTSIDE RECORDS SUMMARY | 2024-07-24 08:26 | XMS_ITS | Encounter Summary ---
Author Organization [employer] Address [address] [facility] [address] 7t [place] [address] Care Team Providers Care Barrer And Tacker Name Role Phone Allyn Salguero JENNIFER Primary Care Provider [phone] Reason for Visit * Reason Onset Date Comments chart prep 07/10/2024 Encounter Details Date Type Department Care Team ([facility] st Contact Info) Description 07/10/2024 Telephone [facility] MEDICINE 230 [place] [address] Lizeth Avalos MA chart prep Social History Tobacco Use Types Packs/Day Years [...] encounter Miscellaneous Notes * Telephone Encounter - Lizeth Avalos MA - 07/10/2024 9:58 AM EST Chart Prep Labs: not done Images: appt 06/28/24 Vaccines due: yes Referrals: pending appt Screenings: none Overdue care gaps: Sbirt documented in this encounter Plan of Treatment Upcoming Encounters Date Type Department Care Team (Late st Contact Info) Description 10/09/2024 2:15 PM EDT Clinical Support [facility] CHC MED & PEDS 505 [place] [address] Ivy Brewster, RN 505 [place] [address] documented as of this encounter Visit Diagnoses Not on filedocumented in this encounter Additional Health Concerns Assessment Noted Time PHQ-9 Depression Total Score: 15 024 9:25 AM EST documented as of this encounter Care Teams Barrer And Tacker Relationship Specialty Start Date End Date Allyn Salguero ANP 230 [place] [address] PCP - General Family Medicine 01/27/20 documented as of this encounter
--- OUTSIDE RECORDS SUMMARY | 2024-07-24 08:26 | XMS_ITS | Encounter Summary ---
Author Organization [employer] Address [address] [facility] [address] 7t [place] [address] Care Team Providers Care Load Manager Name Role Phone Allyn Salguero Primary Care Provider [phone] Reason for Visit * Reason Comments controlled substance treatment Encounter Details Date Type Department Care Team ([facility] Contact Info) Description 07/22/2024 9:30 AM EST Telemedicine [facility] MED & PEDS 505 [place] [address] Ivy Brewster, MIKI 505 [place] [address] Low back pain at multiple sites Social [...] as of this encounter Progress Notes * Ivy Brewster RN - 07/22/2024 9:30 AM EST S: FREIGHT SOLICITOR Televisit. Patient is taking Tramadol 50mg Q 8 hrs PRN. States has been taking medications as prescribed, only as needed. Last taken about a week ago. Reports no adverse reactions. Patient denies nicotine, or illicit drug use. Occasional THC use. Social ETOH use, pt educated of the risks associated with the combination of ETOH and this medication, verbalized understanding. Current pain level is 6/10. Patient states med usually provides about 80% pain relief. Motrin PRN. Last PCP appt 07/10/24. No questions/ concerns at this time. O: FREIGHT SOLICITOR tier 2. CLINICAL LAB TECHNOLOGIST checked on 07/22/24. Pill count performed over the phone, patient states she has 0 pills left, 0 expected. Medications are not being overused. Refill will be queued to PCP. A: Chronic opioid use r/t chronic pain. P: Patient to cont. with current pain medication regimen as needed and take medication only as directed. Next FREIGHT SOLICITOR [place] scheduled for 10/09/24 @2:15pm. f/u sooner PRN. Patient verbalized understanding and agreed to plan. documented in this encounter Plan of Treatment Upcoming Encounters Date Type Department Care Team (Late st Contact Info) Description 10/09/2024 2:15 PM EDT Clinical Support [facility] MED & PEDS [address] [place] [address] Ivy Brewster, RN [address] [place] [address] documented as of this encounter Visit Diagnoses Diagnosis Low back pain at multiple sites documented in this encounter Additional Health Concerns Assessment Noted Time PHQ-9 Depression Total Score: 15 024 9:25 AM EST documented as of this encounter Care Teams Load Manager Relationship Specialty Start Date End Date Allyn Salguero ANP 230 [place] [address] PCP - General Family Medicine 01/27/20 documented as of this encounter
--- OUTSIDE RECORDS SUMMARY | 2024-07-24 08:26 | XMS_ITS | Encounter Summary ---
Author Organization [employer] Address [address] [facility] [address] 7t [place] [address] Care Team Providers Care Gas Furnace Installer Name Role Phone Allyn Salguero Primary Care Provider [phone] Encounter Details Date Type Department Care Team ([facility] Contact Info) Description 06/26/2024 Telephone [facility] MED & PEDS 505 [place] [address] Ivy Brewster, MIKI 505 [place] [address] Social History Tobacco Use Types Packs/Day Years [...] 06/26/2024 12:01 PM EST TC to pt. BELL MAKER appt was accidentally scheduled on 07/15/24, [facility] is closed that day for a holiday. Appt r/s to 07/22/24 9:30@ am. documented in this encounter Plan of Treatment Upcoming Encounters Date Type Department Care Team (Late st Contact Info) Description 10/09/2024 2:15 PM EDT Clinical Support [facility] MED & PEDS 505 [place] [address] Ivy Brewster, MIKI 505 [place] [address] documented as of this encounter Visit Diagnoses Not on filedocumented in this encounter Additional Health Concerns Assessment Noted Time PHQ-9 Depression Total Score: 15 024 9:25 AM EST documented as of this encounter Care Teams Gas Furnace Installer Relationship Specialty Start Date End Date Allyn Salguero ANP 230 [place] [address] PCP - General Family Medicine 01/27/20 documented as of this encounter
--- OUTSIDE RECORDS SUMMARY | 2024-07-24 08:26 | XMS_ITS | Encounter Summary ---
Author Organization [employer] Address [address] [facility] [address] 7t [place] [address] Care Team Providers Care Television Specialist Name Role Phone Allyn Salguero Primary Care Provider [phone] Reason for Visit * Reason Onset Date Comments Nurse Triage 06/27/2024 Encounter Details Date Type Department Care Team ([facility] st Contact Info) Description 06/27/2024 Telephone [facility] MEDICINE 230 [place] [address] Allyn Salguero ANP 230 [place] [address] Nurse Triage Social History Tobacco Use Types [...] PM EST Triage call returned with BLS #[id number] [place]. Patient reports lower abdominal pain more to the left side for three days with no noted improvement. Patient has no fever no nausea vomiting or diarrhea. Patient maintains upright posture. Patient with [employer] insurance and home evaluation offered and declined. Disposition reviewed and patient in agreement with plan. ASK/[place] Kirk OUTPATIENT PROGRAM COORDINATOR tomorrow at 9am. Reviewed with patient home [...] caller accepted this outcome. Contact pt at [phone] documented in this encounter Plan of Treatment Upcoming Encounters Date Type Department Care Team ([facility] st Contact Info) Description 10/09/2024 2:15 PM EDT Clinical Support [facility] MED & PEDS 505 [place] [address] Ivy Brewster, MIKI 505 [place] [address] documented as of this encounter Visit Diagnoses Not on filedocumented in this encounter Additional Health Concerns Assessment Noted Time PHQ-9 Depression Total Score: 15 024 9:25 AM EST documented as of this encounter Care Teams Television Specialist Relationship Specialty Start Date End Date Allyn Salguero ANP [address] [place] [address] PCP - General Family Medicine 01/27/20 documented as of this encounter
--- OUTSIDE RECORDS SUMMARY | 2024-07-24 08:26 | XMS_ITS | Encounter Summary ---
Author Organization [employer] Address [address] [facility] [address] 7t [place] [address] Care Team Providers Care Senior Marketing Coordinator Name Role Phone Allyn Salguero Primary Care Provider [phone] Encounter Details Date Type Department Care Team (Latest Contact Info) Description 07/22/2024 Travel Social History Tobacco Use Types Packs/Day [...] Upcoming Encounters Date Type Department Care Team ([facility] st Contact Info) Description 10/09/2024 2:15 PM EDT Clinical Support [facility] MED & PEDS 505 [place] [address] Ivy Brewster, MIKI 505 [place] [address] documented as of this encounter Visit Diagnoses Not on filedocumented in this encounter Additional Health Concerns Assessment Noted Time PHQ-9 Depression Total Score: 15 024 9:25 AM EST documented as of this encounter Care Teams Senior Marketing Coordinator Relationship Specialty Start Date End Date Allyn Salguero ANP 230 [place] [address] PCP - General Family Medicine 01/27/20 documented as of this encounter
--- OUTSIDE RECORDS SUMMARY | 2024-07-24 08:26 | XMS_ITS | Clinical Summary ---
Author Organization [employer] Address [address] [facility] 7t [place] [address] Care Team Providers Care Photographer Motion Picture Name Role Phone Aashish Cantor Primary Care Provider [phone] Allergies No known active allergies Medications * [...] MORNING 180 tablet 1 02/13/20 24 Active ketoconazole (NIZOral) 2 % creamIndicatio ns:Seborrheic dermatitis APPLY TOPICALLY 1-2 TIMES DAILY TO THE FACE 30 g 2 05/08/20 24 Active omeprazole (PriLOSEC) [address] capsuleIndicat ions:Gastroeso phageal reflux disease, unspecified whether esophagitis present TAKE 1 CAPSULE BY MOUTH EVERY MORNING 30 TO 60 MINUTES BEFORE A MEAL 90 capsule 1 05/20/20 24 Active hydrOXYzine HCl (Atarax) 25 MG tabletIndicati ons:Persistent depressive disorder Take 1 tablet (25 mg) by mouth if needed at bedtime for anxiety. 30 tablet 1 07/10/19 25 2024 Active sertraline (Zoloft) 25 MG tabletIndicati ons:Persistent depressive disorder,Postt raumatic stress disorder Take 1 tablet (25 mg) by mouth in the morning. 30 tablet 1 07/10/19 25 2024 Active polycarbophil (FiberCon) 625 MG tabletIndicati ons:LLQ pain 0.5-1 tablet daily as needed for constipation 90 tablet 07/10/19 25 Active traMADol (Ultram) 50 MG tabletIndicati ons:Low back pain at multiple sites Take 1 tablet (50 mg) by mouth every 8 (eight) hours if needed for severe pain. 42 tablet 1 07/22/19 25 Active traMADol (Ultram) 50 MG tabletIndicati ons:Low back pain at multiple sites TAKE 1 TABLET BY MOUTH EVERY 8 HOURS NEEDED FOR SEVERE PAIN 42 tablet 1 04/24/20 24 2024 Discontinued(R eorder (will not trigger notification to Pharmacy)) ramelteon (Rozerem) 8 MG tabletIndicati ons:Insomnia, unspecified type Take 1 tablet (8 mg) by mouth if needed at bedtime for sleep. 30 tablet 1 06/11/19 25 2024 Discontinued(N on-compliance) sertraline (Zoloft) 25 MG tabletIndicati ons:Persistent depressive disorder,Postt raumatic stress disorder Take 1 tablet (25 mg) by mouth in the morning. 30 tablet 1 06/11/19 25 2024 Discontinued(R eorder (will not trigger notification to Pharmacy)) hydrOXYzine HCl (Atarax) 10 MG tabletIndicati ons:Persistent depressive disorder Take 1 tablet (10 mg) by mouth if needed in the morning and at bedtime for anxiety. 60 tablet 1 06/11/19 25 2024 Discontinued(R eorder (will not trigger notification to Pharmacy)) Active Problems Problem Noted Date Diagnosed Date Anxiety 07/12/2024 LLQ pain 06/28/2024 Assessment & Plan (06/28/2024 [...] is interested in starting medication management with [facility] provider. She was previously seen Zach Jimenez, PCP is currently managing meds. Pt reports she discontinued some of her medication due to experiencing strong side effects. PCP will facilitate letter to assist with her housing needs. Pt was given information for [facility] for sooner OP therapy appointments. will assist [...] intervention , Patient to reach out to [facility] team as needed, Comply with medication , Patient to engage in OP therapy , and Patient to reach out to [facility] as needed Mass of soft tissue of face 09/29/2023 Assessment & Plan (09/29/2023 6:32 PM EDT): pt w growing soft tissue mass localized over her left mid mandibular area that seems a cyst or fibroma? Does not have hard bone consistency -referred for mandibular XR and head/neck US--I called radiologist staff at [facility] and confirmed they can do US over [...] intervention , Patient to reach out to [facility] team as needed, Comply with medication , Patient to engage in OP therapy , and Patient to reach out to [facility] as needed Pain in left leg 03/13/2015 Encounters * This document contains information received from the source organization and may not represent a complete record from that organization. Date Type Department Care Team Description 07/22/2024 9:30 AM EST Telemedicine [facility] [address] [place] [address] Ivy Brewster RN Low back pain at multiple sites 07/22/2024 Refill [facility] [address] [place] [address] Ivy Brewster RN Low back pain at multiple sites 07/22/2024 Travel 07/10/2024 3:00 PM EST Office Visit [address] [address] Aashish Cantor ANP Night sweats (Primary Dx); LLQ pain 07/10/2024 Travel 07/10/[address] [address] Lizeth Avalos [place] chart prep 06/28/2024 9:00 AM EST Office Visit [address] [address] Natasha Lindsey CNP LLQ pain (Primary Dx) 06/27/[address] [address] Aashish Cantor ANP Nurse Triage 06/27/2024 Patient Outreach [address] [address] Aashish Cantor ANP Pre-visit Planning (Pre-visit planning - LVM ) 06/26/2024 Telephone [facility] [address] [place] [address] Ivy Brewster RN 06/26/2024 Travel 05/28/2024 Refill [facility] [address] [place] [address] Aashish Cantor ANP Insomnia, unspecified type 05/23/2024 Telephone [facility] [address] [place] [address] Altagracia Thurman RN Results 05/22/2024 Refill [facility] [address] [place] [address] Aashish Cantor ANP Low back pain at multiple sites 05/21/2024 Orders Only [facility] [address] [place] [address] Aashish Cantor ANP Persistent depressive disorder (Primary Dx); Chronic bilateral low back pain without sciatica; Posttraumatic stress disorder 05/21/2024 Orders Only [facility] [address] [place] [address] Aashish Cantor ANP PTSD (post-traumatic stress disorder) (Primary Dx); Chronic bilateral low back pain without sciatica; Persistent depressive disorder; Posttraumatic stress disorder 05/20/2024 Telephone [facility] [address] [place] [address] Tirso [place], [place] May05/20/2024 Orders Only [facility] [address] [place] [address] Aashish Cantor ANP 05/20/2024 Refill [facility] [address] [place] [address] Aashish Cantor ANP Gastroesophageal reflux disease, unspecified whether esophagitis present (Primary Dx) 05/14/2024 10:00 AM EST Clinical Support [facility] [address] [place] [address] Ivy Brewster RN Low back pain at multiple sites 05/14/2024 Telephone [facility] [address] [place] [address] Ivy Brewster RN 05/14/2024 Travel 05/08/2024 Refill [facility] [address] [place] [address] Aashish Cantor ANP Insomnia, unspecified type; Seborrheic dermatitis from Last 3 Months Immunizations Name Administration [...] is your housing situation today? I have dajabri kerns 01/18/[address] you [...] (152 lb) 07/10/2024 3:41 PM EST Height 165.1 cm (5' 5 ) 01/18/2024 11:48 AM EDT Body Mass Index 25.29 01/18/2024 11:48 AM EDT Plan of Treatment Upcoming Encounters Date Type Department Care Team ([facility] st Contact Info) Description 10/09/2024 2:15 PM EDT Clinical Support [facility] [address] [place] [address] Ivy Brewster RN [address] [place] [address] Health Maintenance Due Date Last Done Comments Hepatitis A Vaccines (1 of 2 - Risk 2-dose series) 2000 COVID-19 Vaccine ( season) 2024 Influenza Vaccine (#1) 2024 Mammogram 10/24/2024 10/25/2023 Depression Monitoring (PHQ-9) 11/21/2024 05/23/2024, 05/23/2024 Family Planning (PISQ) 12/06/2024 12/07/2023 SDOH Screening 01/17/2025 01/18/2024 Depression Screening 05/23/2025 05/23/2024, 05/23/20 24 DTaP/Tdap/Td Vaccines (2 - Td or Tdap) 07/07/2025 07/07/2015, 04/27/2012, 05/31/2004 Alcohol/Substance Use Screening 07/10/2025 07/10/2024 Tobacco Screening 07/10/2025 07/10/2024 Cervical Cancer Screening 10/25/2028 HPV/Cotest 10/25/2028 10/26/2023, [...] Procedure Name Priority Date/Time Associated Diagnosis Comments CBC WITH AUTO DIFFERENTIAL Routine 06/28/2024 10:04 AM EST LLQ pain POCT YANELY-14 URINE DRUG SCREEN Routine 05/14/2024 [...] Recently Relevant to Health Maintenance Results * (ABNORMAL) CBC auto differential (06/28/2024 10:04 AM EST) White Blood Count 6.9 4.8 - 10.8 X10*3/uL [facility] Red Blood Count 3.83(L) 4.20 - 5.50 X10*6/uL [facility] Hemoglobin 12.5 12.0 - 16.0 g/dl [facility] Hematocrit 37.3 37.0 - 47.0 % [facility] Mean Corpuscular Volume 97.4 80.0 - 98.0 fL [facility] Mean Corpuscular Hemoglobin 32.6 27.0 - 33.0 pg [facility] Mean Corpuscular HGB Conc 33.5 31.0 - 35.0 g/dl [facility] Red Cell Distribution Width 12.2 11.0 - 16.0 % [facility] Platelet Count 310 160 - 400 X10*3/uL [facility] Mean Platelet Volume 9.4 9.4 - 12.3 fL [facility] Neutrophils Percent Auto 61.9 45 - 73 % [facility] Imm Gran Pct Auto 0.3 0.0 - 0.4 % [facility] Lymphocytes Percent Auto 26.2 20 - 40 % [facility] Monocytes Percent Auto 9.9 2 - 11 % [facility] Eosinophils Percent Auto 1.3 0 - 4 % [facility] Basophils Percent Auto 0.4 0 - 2 % [facility] NRBC Pct Auto 0.0 0.0 - 0.2 /100WBC [facility] Neutrophils Absolute Auto 4.3 2.0 - 8.3 x10*3/uL [facility] Imm Gran Abs Auto 0.02 0.00 - 0.03 X10*3/uL [facility] Lymphocytes Absolute Auto 1.8 1.2 - 4.9 X10*3/uL [facility] Monocytes Absolute Auto 0.7 0.1 - 1.2 X10*3/uL [facility] Eosinophils Absolute Auto 0.1 0.0 - 0.4 X10*3/uL [facility] Basophils Absolute Auto 0.0 0.0 - 0.2 X10*3/uL [facility] NRBC Abs Auto 0.000 0.0 - 0.012 X10*3/uL [facility] Blood Venous blood specimen / Unknown 06/28/2024 10:04 AM EST 06/28/2024 12:22 PM EST Natasha Lindsey PRINCIPAL SYSTEM SOFTWARE ENGINEER LAB BLOOD ORDERABLES Tish l Result [facility] [address] [place] [address] [phone] * POCT YANELY-14 Urine Drug Screen (05/14/2024 2:51 PM EST) THC Positive Urine Urine specimen obtained by clean catch procedure / Unknown 05/14/2024 2:51 PM EST Narrative Ivy Brewster RN - 05/14/2024 2:51 PM EST Lot# [id number] Exp: 05-04-25 Aashish [facility] POINT OF CARE TEST ENTER/EDIT OR DERABLES Final Result * HPV mRNA E6/E7 w/Reflex to HPV Genotypes 16, 18/45 (10/26/2023 2:02 PM EDT) HPV nRNA E6/E7 Not Detected Not Detected [facility] Comment:Methodology: Transcr iption-Mediated AmplificationThis assay detects E6/E7 viral messenger RNA (mRNA) from 14high-risk HPV types (16,18,31,33,35,39,45,51,52,56,58,59,66,68).Cervical sources are required for HPV testing.If a vaginal source from a patient who has had atotal hysterectomy with removal of cervix wassubmitted, please contact the testing laboratoryfor alternative testing options.For additional information, please refer tohttp://education.[email or web address]/faq/AAK101g8(This link if provided for information/educational purposes only.)THIS TEST WAS PERFORMED AT:[employer] [place] [id number] HILL MD HPV mRNA E6/E7 [facility] HPV 16 RNA [facility] HPV 18/45 RNA [facility] 10/26/2023 2:02 PM EDT 10/27/2023 8:30 AM EDT us Gema Oneil [facility] LAB CYTOLOGY ORDERABLES F inal Result [facility] [address] [place] [phone] * Pap Smear (10/26/2023 2:02 PM EDT) Swab Cervix uteri structure / Unknown 10/26/2023 2:02 PM EDT 10/27/2023 8:30 AM EDT Narrative [facility] - 11/13/2023 5:14 PM EDT ----- ------- Name: Rupal Jim ? Age/Sex: 43/F ? : 1980 Unit#: [id number] ?? Attend Dr: GEMA ONEIL CNM ?Re10/26/23 ?Status: DEP REF ? Location: HO.LNP ?Disch: ? ----- ------- SPEC : [id number] ?RECD: 10/27/23 ? STATUS: ??SOUT ? REQ NUM: [id number] ? MARIAM: 10/26/23-1402 ? SUBM DR: GEMA ONEIL CNM ? ENTERED: ??10/27/23-1023 ?SP TYPE: Pap Smr ?OTHR : ? [...] 66, 68) ? HPV testing performed by [employer], [place], [place]. ??See reference laboratory ?? portion of the EMR for entire report. ?Clinical Information LMP: Unknown date Previous PAP test: 2017, WNL ? Material Received ?? ThinPrep-Vaginal/Cervical ----- ------- Signed (signature on file) Radha Stinson Pk 11/13/231713 ? ----- ------- ? END OF REPORT ? us Gema Oneil CNM LAB CYTOLOGY ORDERABLES F inal Result [facility] [address] [place] [address] [phone] * BI Mammogram Screening Tomosynthesis Bilateral (10/25/2023 3:10 PM EDT) Anatomical Region Laterality Modality Breast Bilateral Mammography 10/25/2023 3:10 PM EDT Narrative 11/21/2023 5:11 PM EDT ? [facility] ? [address] ?[place] [address] ? Mammography Report ? Signed ? Patient: Rupal Jim ?MR#: ?? [id number] ? : 1980 ?Acct:[id number] ? Age/Sex: 43 / F ?ADM Date: 10/25/23 ? Loc: HO.MAMMO ? Attending Dr: Aashish Cantor WIRE FENCE ERECTOR ? Ordering Physician: AASHISH CANTOR NP ?Results: 1Negative ? Date of Service: 10/25/23 ?Follow Up: 1 Year From Orig ?? inal Mammogram ? Procedure(s): MM tomosynthesis screening BI ?? Accession Number(s): [id number] ? cc: Ariella Faye MD; AASHISH CANTOR [...] by Emily Huggins MD in OV> ? 11/21/23 1707 ? DD/ 1510 ? TD/TT: ? Grape Grower: ? Procedure Note Sheldon, Image - 11/21/2023 [facility] [address] [place] [address] Mammography Report Signed Patient: Rupal JimMR#: [id number] : 1980Acct:[id number] Age/Sex: 43 / FADM Date: 10/25/23 Loc: ANEL Attending Dr: Aashish Cantor WIRE FENCE ERECTOR Ordering Physician: AASHISH CANTORults: 1Negative Date of Service: 10/25/23Follow Up: 1 Year From Orig inal Mammogram Procedure(s): MM tomosynthesis screening BI Accession Number(s): [id number] cc: Ariella Faye MD; AASHISH CANTOR NP [...] in OV> 11/21/23 1707 DD/ 1510 TD/TT: Grape Grower: us Aashish RODRIGUEZ IMG BI PROCEDURES Final Result * Hepatitis C Antibody with Reflex to HCV, RNA, Quantitative, Real-Time PCR (10/11/2023 2:21 PM EDT) Hepatitis C Antibody Nonreactive Nonreactive [facility] Comment:Antibodies to HCV no t detected; does not exclude early acuteHCV infection. Blood Venous blood specimen / Unknown 10/11/2023 2:21 PM EDT 10/11/2023 4:00 PM EDT us Aashish RODRIGUEZ LAB BLOOD ORDERABLES Final Resul t [facility] [address] [place] [phone] * HIV-1/2 Antigen and Antibodies, Fourth Generation, with Reflexes (10/11/2023 2:21 PM EDT) HIV AB/AG Nonreactive Nonreactive [facility] Comment:HIV-1 p24 Ag and/or HIV-1/HIV-2 Ab not detected.A test result that is nonreactive does not exclude thepossibility of exposure to or infection with HIV-1 and/orHIV-2. Nonreactive results in this assay for individualswith prior exposure to HIV-1 and/or HIV-2 may be due toantigen and antibody levels that are below the limit ofdetection of this assay.The [employer] HIV Ag/Ab Combo assay result andsupplemental assay results should be interpreted inconjunction with the patient's clinical presentation,history and other laboratory results. If the results areinconsistent with clinical evidence, additional testing issuggested to confirm the result. Blood Venous blood specimen / Unknown 10/11/2023 2:21 PM EDT 10/11/2023 4:[address] [facility] LAB BLOOD ORDERABLES Final Resul t [facility] [address] [place] [address] [phone] from Last 3 Months or Most Recently Relevant to Health Maintenance Insurance Care Teams Photographer Motion Picture Relationship Specialty Start Date End Date Aashish Cantor ANP [address] [place] [phone] PCP - General Family Medicine 01/27/20
--- OUTSIDE RECORDS SUMMARY | 2024-07-24 08:26 | XMS_ITS | Encounter Summary ---
Author Organization [employer] Address [address] [facility] [address] 7t [place] [address] Care Team Providers Care Heating Mechanic Name Role Phone Allyn Salguero Primary Care Provider [phone] Reason for Visit * Reason Comments Med Refill Encounter Details Date Type Department Care Team ([facility] st Contact Info) Description 05/28/2024 Refill [facility] [address] [place] [address] Allyn Salguero ANP [address] [place] [address] Insomnia, unspecified type Social History Tobacco Use [...] Upcoming Encounters Date Type Department Care Team ([facility] st Contact Info) Description 10/09/2024 2:15 PM EDT Clinical Support [facility] & PEDS [address] [place] [address] Ivy Brewster, MIKI [address] [place] [address] documented as of this encounter Visit Diagnoses Diagnosis Insomnia, unspecified type documented in this encounter Additional Health Concerns Assessment Noted Time PHQ-9 Depression Total Score: 15 024 9:25 AM EST documented as of this encounter Care Teams Heating Mechanic Relationship Specialty Start Date End Date Allyn Salguero ANP [address] [place] [address] PCP - General Family Medicine 01/27/20 documented as of this encounter
--- OUTSIDE RECORDS SUMMARY | 2024-07-24 08:26 | XMS_ITS | Encounter Summary ---
Author Organization [employer] Address [address] [facility] [address] 7[address] [place] [address] Care Team Providers Care Supervisor Plastics Name Role Phone Allyn Salguero Primary Care Provider [phone] Encounter Details Date Type Department Care Team (Late st Contact Info) Description 05/21/[address] [facility] MED[facility] [address] [place] [address] Allyn Salguero ANP [address] [place] [address] Persistent depressive disorder (Primary Dx); Chronic bilateral [...] Description 10/09/2024 2:15 PM EDT Clinical Support [facility] [address] [place] [address] Ivy Brewster, RN [address] [place] [address] documented as of this encounter Visit Diagnoses Diagnosis Persistent depressive disorder- Primary Chronic bilateral low back pain without sciatica Posttraumatic stress disorder documented in this encounter Additional Health Concerns Assessment Noted Time PHQ-9 Depression Total Score: 12 024 12:32 PM EDT documented as of this encounter Care Teams Supervisor Plastics Relationship Specialty Start Date End Date Allyn Salguero ANP [address] [place] [address] PCP - General Family Medicine 01/27/20 documented as of this encounter
--- OUTSIDE RECORDS SUMMARY | 2024-07-24 08:26 | XMS_ITS | Encounter Summary ---
Author Organization [employer] Address [address] [facility] [address] [place] [address] Care Team Providers Care Eyeletter Name Role Phone Allyn Salguero Primary Care Provider [phone] Encounter Details Date Type Department Care Team (Latest Contact Info) Description 07/10/2024 Travel Social History Tobacco Use Types Packs/Day [...] Upcoming Encounters Date Type Department Care Team ([facility] st Contact Info) Description 10/09/2024 2:15 PM EDT Clinical Support [facility] MED [facility]EDS [address] [place] [address] Ivy Brewster, MIKI [address] [place] [address] documented as of this encounter Visit Diagnoses Not on filedocumented in this encounter Additional Health Concerns Assessment Noted Time PHQ-9 Depression Total Score: 15 024 9:25 AM EST documented as of this encounter Care Teams Eyeletter Relationship Specialty Start Date End Date Allyn Salguero ANP [address] [place] [address] PCP - General Family Medicine 01/27/20 documented as of this encounter
--- OUTSIDE RECORDS SUMMARY | 2024-07-24 08:26 | XMS_ITS | Encounter Summary ---
Author Organization [employer] Address [address] [facility] [address] [place] [address] Care Team Providers Care Sheet Metal Operator Name Role Phone Allyn Salguero Primary Care Provider [phone] Reason for Visit * Reason Onset Date Comments Med Refill 07/22/2024 Encounter Details Date Type Department Care Team ([facility] st Contact Info) Description 07/22/2024 Refill [facility] & PEDS [address] [place] [address] Ivy Brewster RN [address] [place] [address] Low back pain at multiple sites Social [...] Clinical Support [facility] [address] [place] [address] Ivy Brewster, MIKI [address] [place] [address] documented as of this encounter Visit Diagnoses Diagnosis Low back pain at multiple sites documented in this encounter Additional Health Concerns Assessment Noted Time PHQ-9 Depression Total Score: 15 024 9:25 AM EST documented as of this encounter Care Teams Sheet Metal Operator Relationship Specialty Start Date End Date Allyn Salguero ANP [address] [place] [address] PCP - General Family Medicine 01/27/20 documented as of this encounter
--- OUTSIDE RECORDS SUMMARY | 2024-07-24 08:27 | XMS_ITS | Encounter Summary ---
Author Organization [employer] Address [address] [facility] 7t [place] [address] Care Team Providers Care Product Safety Head Name Role Phone Allyn Salguero Primary Care Provider [phone] Encounter Details Date Type Department Care Team ([facility] Contact Info) Description 09/09/2022 Orders Only [facility] MED [facility] PEDS [address] [place] [address] Iliana Mason LPN Social History Tobacco Use [...] Upcoming Encounters Date Type Department Care Team ([facility] Contact Info) Description 10/09/2024 2:15 PM EDT Clinical Support [facility] MED [facility] PEDS [address] [place] [address] Ivy Brewster, MIKI [address] [place] [address] documented as of this encounter Visit Diagnoses Not on filedocumented in this encounter Care Teams Product Safety Head Relationship Specialty Start Date End Date Allyn Salguero ANP [address] [place] [address] PCP - General Family Medicine 01/27/20 documented as of this encounter
--- OUTSIDE RECORDS SUMMARY | 2024-07-24 08:27 | XMS_ITS | Encounter Summary ---
Author Organization [employer] Address [address] [facility] [address] [place] [address] Care Team Providers Care Rice Cleaning Machine Tender Name Role Phone Allyn Salguero JENNIFER Primary Care Provider [phone] Reason for Referral * Imaging (Routine) - Authorized Specialty Diagnoses / Procedures Referred By Drew ambrose Referred To Contact Radiology Diagnoses LLQ pain Procedures US Abdomen Complete Natasha Lindsey CNP [address] [place] [address] Phone: tel: fax: [address] Phone: tel: fax: Referral ID Status Reason Start Date Expiration Date V isits Requested Visits Authorized [id number] Authorized 06/28/2024 06/28/2025 1 1 Reason for Visit * Reason Comments Flank Pain Encounter Details Date Type Department Care Team (Late st Contact Info) Description 06/28/2024 9:00 AM EST Office Visit [facility] [address] [place] [id number] Natasha Lindsey CNP [address] [place], [place] [phone] LLQ pain (Primary Dx) Social History Tobacco [...] 11:48 AM EDT documented in this encounter Progress Notes * Natasha Lindsey, NET MAKER - 06/28/2024 9:00 AM EST Rupal Schafer is a 44 y.o. adult who presents for a acute visit. Endorsing left lower abdominal pain. Endorsing 4 days of lower left quadrant abdominal pain, doesn't radiate to other side or back , it has gotten worse, denies it getting worse or better after eating. Describes the pain as sharp or pulsating , Bending over relieves the pain. Denies pelvic pain. Last BM: this morning, denies blood in stool, denies n/v/d. Denies urinary sx, frequency, flank pain, fever, chills, myalgias, hematuria. LMP: 10-12 days since menstrual cycle, regular periods Has had abdominal u/s in 2022 which was unremarkeable Patient Active Problem List Diagnosis Chronic sore throat Persistent depressive disorder Posttraumatic stress disorder Chronic bilateral low back pain without sciatica Insomnia Mass of soft tissue of face Pain in left leg Group C streptococcal infection LLQ pain No Known Allergies Review of Systems Constitutional: Negative for chills, diaphoresis, fatigue, fever and unexpected weight change. Respiratory: Negative for cough, chest tightness and shortness of breath. Cardiovascular: Negative for chest pain and palpitations. Gastrointestinal: Positive for abdominal pain. Negative for anal bleeding, blood in stool, constipation, diarrhea, nausea and vomiting. Genitourinary: Negative for decreased urine volume, difficulty urinating, flank pain, frequency, hematuria, menstrual problem, pelvic pain, urgency, vaginal bleeding and vaginal discharge. Musculoskeletal: Negative for arthralgias, back pain and myalgias. Skin: Negative for color change, rash and wound. Neurological: Negative. Psychiatric/Behavioral: Negative. Vitals: 06/28/24 0925 BP: 116/74 Pulse: 78 Resp: 18 Temp: 98.5 ??F (36.9 ??C) TempSrc: Oral SpO2: 99% Weight: 151 lb 12.8 oz (68.9 kg) Physical Exam Constitutional: General: Rupal is not in acute distress. Appearance: Normal appearance. Rupal is normal weight. Rupal is not toxic-appearing. HENT: Head: Normocephalic and atraumatic. Cardiovascular: Rate and Rhythm: Normal rate and regular rhythm. Pulses: Normal pulses. Heart sounds: Normal heart sounds. No murmur heard. No gallop. Pulmonary: Effort: Pulmonary effort is normal. No respiratory distress. Breath sounds: Normal breath sounds. No wheezing or rales. Abdominal: General: Bowel sounds are normal. There is no distension. Palpations: Abdomen is soft. There is no mass. Tenderness: There is no abdominal tenderness. There is no right CVA tenderness, left CVA tenderness, guarding or rebound. Hernia: No hernia is present. Skin: Capillary Refill: Capillary refill takes less than 2 seconds. Neurological: General: No focal deficit present. Mental Status: Rupal is alert and oriented to person, place, and time. Psychiatric: Mood and Affect: Mood normal. Behavior: Behavior normal. Thought Content: Thought content normal. Judgment: Judgment normal. Problem List Items Addressed This Visit LLQ pain - Primary Current Assessment & Plan Pt physical exam wnl, abdominal exam unremarkeable, no masses palpated, no guarding, no rebound tenderness, no color changes, +BS, VSS Will obtain CBC to r/o GI bleed and infectious etiology and abdominal U/S today Will f/u with results Relevant Orders CBC auto differential US Abdomen Complete [facility] ACETYLENE PLANT OPERATOR Attestation ACETYLENE PLANT OPERATOR Resident Attestation: Patient was seen and evaluated by Natasha Lindsey ACETYLENE PLANT OPERATOR, in collaboration with Allyn Salguero ACETYLENE PLANT OPERATOR who hasreviewed my assessment and plan. I, Allyn Salguero ACETYLENE PLANT OPERATOR , have reviewed the resident's note and agree with the assessment & plan of care as documented above. Visit Conducted in: Swedish Translation by: Provided by [facility] staff member Mak Lozano MA , documented in this encounter Miscellaneous Notes * [...] Description 10/09/2024 2:15 PM EDT Clinical Support [facility] [address] [place] [address] Ivy Brewster, RN [address] [place] [address] Scheduled Orders Name Type Priority Associated Diagnoses Orde r Schedule US Abdomen Complete Imaging Routine LLQ pain Expected: 06/28/2024, Expires: 06/28/2025 documented as of this encounter Procedures Procedure Name Priority Date/Time Associated Diagnosis Comments CBC WITH AUTO DIFFERENTIAL Routine 06/28/2024 10:04 AM EST LLQ pain documented in this encounter Results * (ABNORMAL) CBC auto differential (06/28/2024 10:04 AM EST) White Blood Count 6.9 4.8 - 10.8 X10*3/uL [facility] Red Blood Count 3.83(L) 4.20 - 5.50 X10*6/uL [facility] Hemoglobin 12.5 12.0 - 16.0 g/dl [facility] Hematocrit 37.3 37.0 - 47.0 % [facility] Mean Corpuscular Volume 97.4 80.0 - 98.0 fL [facility] Mean Corpuscular Hemoglobin 32.6 27.0 - 33.0 pg [facility] Mean Corpuscular HGB Conc 33.5 31.0 - 35.0 g/dl [facility] Red Cell Distribution Width 12.2 11.0 - 16.0 % [facility] Platelet Count 310 160 - 400 X10*3/uL [facility] Mean Platelet Volume 9.4 9.4 - 12.3 fL [facility] Neutrophils Percent Auto 61.9 45 - 73 % [facility] Imm Gran Pct Auto 0.3 0.0 - 0.4 % [facility] Lymphocytes Percent Auto 26.2 20 - 40 % [facility] Monocytes Percent Auto 9.9 2 - 11 % [facility] Eosinophils Percent Auto 1.3 0 - 4 % [facility] Basophils Percent Auto 0.4 0 - 2 % [facility] NRBC Pct Auto 0.0 0.0 - 0.2 /100WBC [facility] Neutrophils Absolute Auto 4.3 2.0 - 8.3 x10*3/uL [facility] Imm Gran Abs Auto 0.02 0.00 - 0.03 X10*3/uL [facility] Lymphocytes Absolute Auto 1.8 1.2 - 4.9 X10*3/uL [facility] Monocytes Absolute Auto 0.7 0.1 - 1.2 X10*3/uL [facility] Eosinophils Absolute Auto 0.1 0.0 - 0.4 X10*3/uL [facility] Basophils Absolute Auto 0.0 0.0 - 0.2 X10*3/uL [facility] NRBC Abs Auto 0.000 0.0 - 0.012 X10*3/uL [facility] Blood Venous blood specimen / Unknown 06/28/2024 10:04 AM EST 06/28/2024 12:22 PM EST Natasha Lindsey [facility] BLOOD ORDERABLES Tish l Result [facility] [address] [place] [phone] documented in this encounter Visit Diagnoses Diagnosis LLQ pain- Primary Abdominal pain, left lower quadrant documented in this encounter Additional Health Concerns Assessment Noted Time PHQ-9 Depression Total Score: 15 024 9:25 AM EST documented as of this encounter Care Teams Rice Cleaning Machine Tender Relationship Specialty Start Date End Date Allyn Salguero ANP [address] [place] [address] PCP - General Family Medicine 01/27/20 documented as of this encounter
--- OUTSIDE RECORDS SUMMARY | 2024-07-24 08:27 | XMS_ITS | Encounter Summary ---
Author Organization [employer] Address [address] [facility] 7[address] [place] [address] Care Team Providers Care Nuclear Operations Specialist Name Role Phone Allyn Salguero Primary Care Provider [phone] Reason for Visit * Reason Comments Med Refill Encounter Details Date Type Department Care Team ([facility] Contact Info) Description 01/03/2023 Refill [facility] [address] [place] [address] Allyn Salguero ANP [address] [place] [address] Low back pain at multiple sites Social [...] Upcoming Encounters Date Type Department Care Team ([facility] Contact Info) Description 10/09/2024 2:15 PM EDT Clinical Support [facility] [address] [place], [place] [phone] Ivy Brewster, MIKI [address] [place] [address] documented as of this encounter Visit Diagnoses Diagnosis Low back pain at multiple sites documented in this encounter Care Teams Nuclear Operations Specialist Relationship Specialty Start Date End Date Allyn Salguero ANP [address] [place] [phone] PCP - General Family Medicine 01/27/20 documented as of this encounter
--- OUTSIDE RECORDS SUMMARY | 2024-07-24 08:27 | XMS_ITS | Encounter Summary ---
Author Organization [employer] Address [address] [facility] [address] [place] [address] Care Team Providers Care Complex Manager Name Role Phone Allyn Salguero Primary Care Provider Reason for Visit * Reason Comments Med Refill Encounter Details Date Type Department Care Team ([facility] Contact Info) Description 09/16/2022 Refill [facility] [address] [place] [address] Allyn Salguero ANP [address] [place] [address] Low back pain at multiple sites Social [...] Department Care Team (Late Contact Info) Description 10/09/2024 2:15 PM EDT Clinical Support [facility] [address] [place], [place] [phone] Ivy Brewster, MIKI [address] [place] [address] documented as of this encounter Visit Diagnoses Diagnosis Low back pain at multiple sites documented in this encounter Care Teams Complex Manager Relationship Specialty Start Date End Date Allyn Salguero ANP [address] [place] [phone] PCP - General Family Medicine 01/27/20 documented as of this encounter
== END 2024-07-24 08:09 | disposition home or self-care (01) ==
LOC: HO.US 08:08
PROVIDERS: PCP Nurse Practitioner Primary Care
DX: R10.32 Left lower quadrant pain (principal)
CPT/HCPCS: 76700

== ENCOUNTER → 2024-07-24 08:10 | Outpatient (BNV) | payer OTHER, SELFPAY | PROVIDERS: PCP Nurse Practitioner Primary Care; Visit Provider Radiology Diagnostic Radiology | DX: R10.32 Left lower quadrant pain (principal) | CPT/HCPCS: 76700 ==

== ENCOUNTER 2025-02-18 20:24 | Emergency (ER) | payer OTHER, SELFPAY ==
--- NOTE | ~2025-02-18 | CT_ITS ---
CLINICAL HISTORY: fall CT cervical spine without contrast Comparison: None provided Findings: Straightening of the normal cervical lordosis. Multilevel degenerative endplate changes of the cervical spine. No high-grade spinal stenosis. No acute fractures or dislocations. Congenital nonfusion of the posterior arch of C1. Visualized intracranial contents are unremarkable. No cervical fluid collections or masses. Lung apices are clear. IMPRESSION: No acute traumatic abnormality in the cervical spine. This document has been electronically signed by: Sue Dominguez MD on 02/18/2025 21:59:19
--- NOTE | ~2025-02-18 | CT_ITS ---
CLINICAL HISTORY: fall CT head without contrast Comparison: None provided Findings: BRAIN: No acute infarct, hemorrhage, or mass effect. No abnormal atrophy. CSF SPACES: No hydrocephalus or effacement of basal cisterns. SKULL: No calvarial fracture. SINUSES: No significant mucosal thickening or effusion on limited views. ORBITS: Limited views are unremarkable. OTHER: Negative. IMPRESSION: 1. No acute intracranial findings. This document has been electronically signed by: Sue Dominguez MD on 02/18/2025 21:57:12
[2025-02-18 20:34] VITALS: BP 132/62; PULSE 98; RESP 20; TEMP 36.9; O2SAT 98; BMI 26.6
[2025-02-18 21:32] LABS: MANUAL DIFF FLAG NO
[2025-02-18 21:35] LABS: Hematocrit 35.5 % (37.0-47.0); Hemoglobin 11.9 g/dl (12.0-16.0); Imm Gran Abs Auto 0.02 X10*3/uL (0.00-0.03); Imm Gran Pct Auto 0.2 % (0.0-0.4); Lymphocytes Absolute Auto 2.3 X10*3/uL (1.2-4.9); Mean Corpuscular HGB Conc 33.5 g/dl (31.0-35.0); Mean Corpuscular Hemoglobin 32.2 pg (27.0-33.0); Mean Corpuscular Volume 96.2 fL (80.0-98.0); NRBC Abs Auto 0.000 X10*3/uL (0.0-0.012); NRBC Pct Auto 0.0 /100WBC (0.0-0.2); Platelet Count 318 X10*3/uL (160-400); Red Blood Count 3.69 X10*6/uL (4.20-5.50); White Blood Count 9.1 X10*3/uL (4.8-10.8)
[2025-02-18 21:52] LABS: IDNOW Serial# 08D9AD1C; Influenza B2 Negative (Negative)
[2025-02-18 21:54] LABS: COVID-19 Test Negative (Negative); IDNOW Serial# 6674DD1D
[2025-02-18 21:58] LABS: Alanine Aminotransferase 16 U/L (0-31); Albumin Level 4.2 g/dL (3.5-5.0); Alkaline Phosphatase 73 U/L (39-117); Anion Gap 11 (12-20); Aspartate Amino Transferase 20 U/L (5-31); Blood Urea Nitrogen 10 mg/dL (9-16); Calcium 8.9 mg/dL (8.4-10.2); Carbon Dioxide 26 mmol/L (22-29); Chloride 109 mmol/L (96-108); Creatinine Clr Calc Pharmacy 104.8; Estimated Glomerular Filt Rate > 60; Lipase 24 U/L (8-78); Potassium 3.8 mmol/L (3.3-5.1); Sodium 142 mmol/L (135-145); Total Protein 7.1 g/dL (6.5-8.0)
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
[2025-02-19 00:18] VITALS: BP 132/62; PULSE 98; RESP 20; TEMP 36.9; O2SAT 98
== END 2025-02-19 00:18 | disposition home or self-care (01) ==
PROVIDERS: Emergency Provider Emergency Medicine Emergency Medical Services; PCP Internal Medicine Geriatric Medicine
DX: S09.90XA Unspecified injury of head, initial encounter (principal); R11.0 Nausea; R42 Dizziness and giddiness; R51.9 Headache, unspecified; M54.2 Cervicalgia; R10.2 Pelvic and perineal pain; X58.XXXA Exposure to other specified factors, initial encounter; Y93.9 Activity, unspecified; Y92.9 Unspecified place or not applicable; Y99.8 Other external cause status; Z11.52 Encounter for screening for COVID-19; Z79.899 Other long term (current) drug therapy
CPT/HCPCS: 36415; 70450; 72125; 80053; 83690; 84702; 85025; 87502; 87635; 99282; 99284

== ENCOUNTER → 2025-02-18 20:49 | Outpatient (BNV) | payer OTHER, SELFPAY | PROVIDERS: Visit Provider Student in an Organized Health Care Education/Training Program | DX: M54.2 Cervicalgia (principal); S09.90XA Unspecified injury of head, initial encounter; V48.4XXA Person boarding or alighting a car injured in noncollision transport accident, initial encounter | CPT/HCPCS: 70450; 72125 ==